=== PATIENT | female | born 1930 | race Caucasian/White ===

== ENCOUNTER 2016-11-11 14:42 | Inpatient (IN) | payer MEDICARE, MEDICAID ==
[2016-11-11] MEDS ORDERED: NS 0.9% 1000 ML* 1,000 ML IV SCH (17:15)
--- NOTE | 2016-11-11 18:11 | RAD ---
Indication: Altered mental status. Comparison: January 24, 2015 MRI. Technique: Noncontrast CT vertex of skull through foramen magnum. Report: Mild prominence of the cerebral sulci and cerebellar fissures reflecting atrophy. Unremarkable ventricles and basal cisterns. Calcification at the bilateral basal ganglia as well as the pineal gland and choroid plexus. Negative for lew matter white matter obscuration, intra or extra-axial hemorrhage, or mass effect. Decreased density in the periventricular and subcortical white matter while non-specific is most likely due to chronic microangiopathy. Atherosclerotic calcification at the carotid siphons. Unremarkable orbital contents. No suspicious calvarial or skull base lesion evident. Clear visualized paranasal sinuses and RIGHT mastoid air spaces. LEFT mastoid effusions appear increased over the 2015 MRI. Unremarkable scalp. IMPRESSION: No acute abnormality of the brain evident. Mild involutional change and stigmata of chronic small vessel ischemic disease similar to the 2015 MRI. Increase in magnitude of LEFT mastoid effusions.
[2016-11-11 18:18] LABS: Hematocrit 21 % (35-47); Hemoglobin 6.8 g/dl (12.0-16.0); Mean Corpuscular HGB Conc 32 g/dl (31-36); Mean Corpuscular Hemoglobin 27 pg (27-31); Mean Corpuscular Volume 85 fL (80-97); Mean Platelet Volume 9 um3 (7.4-10.4); Red Cell Distribution Width 28 % (10.5-15); White Blood Count 8.4 10^3/ul (3.5-10.8)
[2016-11-11 18:19] LABS: Comments Flag Yes
[2016-11-11 18:20] LABS: Add Diff/Slide Review? Slide Review Added
--- NOTE | 2016-11-11 18:26 | RAD ---
Indication: Altered mental status. Weakness. COPD. Cardiac disease. Comparison: January 20, 2015 CT abdomen and February 06, 2016 chest radiograph. Technique: Upright AP 1722 hours Report: Elevated lung volumes and both diffuse mild prominence of the interstitial markings and patchy rarefaction of the mid to upper lung zone interstitial markings. Bilateral pulmonary suture lines in the mid to upper lung zones. Negative for pleural effusions or pneumothorax. Negative for cardiomegaly. Large retrocardiac hiatal hernia noted. Prominent mildly ill-defined central pulmonary vasculature with mild perihilar opacities less prominent than on the prior exam. IMPRESSION: The constellation of findings is most suspicious for mild pulmonary vascular congestion and interstitial edema superimposed on chronic obstructive pulmonary disease and emphysema.
[2016-11-11 18:36] LABS: Troponin I 0.02 ng/mL (<0.04)
[2016-11-11 18:50] LABS: ALT 15 U/L (7-52); AST 28 U/L (13-39); Alkaline Phosphatase 145 U/L (34-104); Anion Gap 9 mmol/L (2-11); BUN/Creatinine Ratio 35.5 (8-20); Blood Urea Nitrogen 27 mg/dL (6-24); C Reactive Protein 5.91 mg/L (< 5.00); CO2 Carbon Dioxide 27 mmol/L (22-32); Calcium 8.7 mg/dL (8.6-10.3); Chloride 111 mmol/L (101-111); Creatine Kinase 34 U/L (10-223); EGFR African American 93.2 (>60); EGFR Non-African American 72.5 (>60); Globulin 4.9 g/dL (2-4); Glucose 103 mg/dL (70-100); Lipase < 10 U/L (11.0-82.0); Magnesium 1.8 mg/dL (1.9-2.7); Potassium 2.9 mmol/L (3.5-5.0); Sodium 147 mmol/L (133-145); Total Protein 7.9 g/dL (6.4-8.9)
[2016-11-11 18:59] LABS: TSH (Thyroid Stimulating Horm) 7.35 mcIU/mL (0.34-5.60)
--- NOTE | 2016-11-11 19:47 | ED ---
Ck Reveles Angela, scribed for Sherman Gant MD on 11/11/16 at 1705 . Neurological HPI - HPI Summary HPI Summary: This pt is a 86 y/o female presenting to [facility] c/o generalized weakness and increased confusion (AMS) since 5 days ago. Pt has dysphagia, has massive coughing and choking. Pt is unable to speak comprehensible words. Per daughter, pt had dark stools 2 days ago and since then she has not had a BM like this. Per daughter, pt has not been doing her usual activities such as reading and watching TV. Daughter has been spoon feeding the pt as she is unable to feed herself and notes the pt is dehydrated. Pt denies fever. Daughter notes that pt had internal bleeding and had a blood transfusion and electrolytes 6 weeks ago. Her follow up with normal lab results was on October 24. PMHx: diverticulitis, GI bleed, GERD, HTN. LIMITED HISTORY DUE TO LEVEL 5 CAVEAT - AMS. - History of Current Complaint Chief Complaint: EDNeurologicalDeficit Stated Complaint: WEAKNESS,BLOOD IN STOOL, POSSIBLE STROK Time Seen by Provider: 11/11/16 16:57 Hx Obtained From: Patient Hx From Patient Unobtainable Due To: Altered Mental Status Onset/Duration: Gradual Onset Character: Confusion Associated Signs and Symptoms: Positive: Confusion - Additional Pertinent History Primary Care Physician: ROSIE - Allergy/Home Medications Allergies/Adverse Reactions: Allergies Allergy/AdvReac Type Severity Reaction Status Date / Time Diphtheria Toxoid Allergy Unknown Verified 09/24/16 11:57 Reaction Details Pertussis Vaccine Allergy Unknown Verified 09/24/16 11:57 Reaction Details Codeine AdvReac Unknown doesnt Verified 09/24/16 11:57 work well with pt tetanus Allergy Unknown Uncoded 09/24/16 11:57 Reaction Details Home Medications: Home Medications Albuterol inh POWDER (NF) [Proair Respiclick] 1 puff INH Q6HR PRN 11/11/16 [ History Confirmed 11/11/16] Fluticasone NASAL * [Flonase *] 2 spray BOTH NARES DAILY 11/11/16 [History Confirmed 11/11/16] Iron 325 mg PO DAILY 11/11/16 [History Confirmed 11/11/16] LORazepam TAB(*) [Ativan 1 MG TAB (*)] 1 mg PO BID PRN MDD 2 mg 11/11/16 [ History Confirmed 11/11/16] Levothyroxine TAB* [Synthroid TAB*] 150 mcg PO DAILY 11/11/16 [History Confirmed 11/11/16] Metoprolol Tartrate TAB* [Lopressor TAB*] 12.5 mg PO DAILY 11/11/16 [History Confirmed 11/11/16] Potassium Chloride 30 ml PO DAILY 11/11/16 [History Confirmed 11/11/16] QUEtiapine TAB* [SEROquel TAB*] 50 mg PO BEDTIME PRN 11/11/16 [History Confirmed 11/11/16] PMH/Surg Hx/FS Hx/Imm Hx Endocrine/Hematology History: Reports: Hx Anticoagulant Therapy, Hx Blood Transfusions, Hx Thyroid Disease - hypothyroidism, Hx Anemia, Other Endocrine/ Hematological Disorders - thrombocytopenia Denies: Hx Diabetes, Hx Unexplained Bleeding Cardiovascular History: Reports: Hx Angina, Hx Cardiomegaly, Hx Congenital Heart Disease, Hx Congestive Heart Failure, Hx Coronary Artery Disease, Hx Hypercholesterolemia, Hx Hypertension, Hx Rheumatic Fever, Hx Valvular Heart Disease - AORTIC STENOSIS, Other Cardiovascular Problems/Disorders Denies: Hx Auto Implanted Cardiovert Defib, Hx Pacemaker/ICD Respiratory History: Reports: Hx Chronic Obstructive Pulmonary Disease (COPD) - on 2L home O2 at night, during the day only if needed, Hx Pneumonia, Hx Pulmonary Edema, Other Respiratory Problems/Disorders - COPD Denies: Hx Asthma GI History: Reports: Hx Diverticulosis, Hx Gastroesophageal Reflux Disease, Hx Gastrointestinal Bleed, Hx Hiatal Hernia - Rene lesions, Other GI Disorders - gastric erosions Denies: Hx Ulcer History: Denies: Hx Renal Disease Musculoskeletal History: Reports: Hx Arthritis, Hx Back Problems - 4 broken vertabrae, Hx Bursitis, Hx Orthopedic Injury - left hip fracture, Hx Osteoporosis, Other Musculoskeletal History - knee replacements Denies: Hx Scoliosis, Hx Tendonitis Sensory History: Reports: Hx Cataracts - surgery to both eyes, Hx Contacts or Glasses, Hx Vision Problem, Hx Deafness - NEZ PERCE, Hx Hearing Problem Denies: Hx Hearing Aid Opthamlomology History: Reports: Hx Cataracts - surgery to both eyes, Hx Contacts or Glasses, Hx Vision Problem Neurological History: Reports: Hx Dementia Denies: Hx Migraine, Hx Seizures Psychiatric History: Reports: Hx Anxiety, Hx Depression, Hx Panic Disorder, Hx Post Traumatic Stress Disorder - from loss of son Nov 2014 Denies: Hx Suicide Attempt, Hx Substance Abuse - Cancer History Cancer Type, Location and Year: NO CANCER FOUND IN TUMORS FROM LOBECTOMY - Surgical History Surgery Procedure, Year, and Place: LOBECTOMY, BILAT TOTAL KNEE REPLACEMENTS, Bilat cataracts Hx Anesthesia Reactions: No - Immunization History Date of Tetanus Vaccine: 07/21 Date of Influenza Vaccine: Fall 2013 Infectious Disease History: Denies: Hx Hepatitis, Hx Human Immunodeficiency Virus (HIV), Traveled Outside the [place] in Last 30 Days - Family History Known Family History: Negative: Other - malignant hyperthermia, anesthesia reaction - Social History Alcohol Use: None Alcohol Amount: Occasional glass of wine Substance Use Type: Reports: None Smoking Status (MU): Former Smoker Type: Cigarettes Amount Used/How Often: 4 or 5 a day Length of Time of Smoking/Using Tobacco: 15 Have You Smoked in the Last Year: No Review of Systems Negative: Fever, Chills Eyes: Negative ENT: Negative Musculoskeletal: Negative Neurological: Other - confusion Positive: Weakness - generalized All Other Systems Reviewed And Are Negative: Yes - Comments Additional Review of Systems Comments: LIMITED ROS DUE TO LEVEL 5 CAVEAT - AMS Physical Exam Triage Information Reviewed: Yes Vital Signs On Initial Exam: Initial Vitals Temp Pulse Resp BP Pulse Ox 97.3 F 69 20 136/41 94 11/11/16 14:45 11/11/16 14:45 11/11/16 14:45 11/11/16 14:45 11/11/16 14:45 Vital Signs Reviewed: Yes Completion Of Physical Exam Limited Due To: Altered Mental Status Appearance: Positive: Well-Appearing, No Pain Distress Skin: Positive: Warm, Skin Color Reflects Adequate Perfusion, Dry Head/Face: Positive: Normal Head/Face Inspection Eyes: Positive: EOMI, KELLI ENT: Positive: Other - Oral mucosa is dry. Neck: Positive: Supple, Nontender Respiratory/Lung Sounds: Positive: Clear to Auscultation, Breath Sounds Present Cardiovascular: Positive: RRR, Murmur Abdomen Description: Positive: Nontender, Soft Bowel Sounds: Positive: Present Musculoskeletal: Positive: Normal, Strength/ROM Intact, Other - No edema Neurological: Positive: Sensory/Motor Intact - moves all 4 extremeties when prompted., Other - Minimally verbal Psychiatric: Positive: Affect/Mood Appropriate - Todd Coma Scale Best Eye Response: 4 - Spontaneous Best Motor Response: 6 - Obeys Commands Best Verbal Response: 4 - Confused Diagnostics - Vital Signs Vital Signs Temp Pulse Resp BP Pulse Ox 11/11/16 14:45 97.3 F 69 20 136/41 94 - Laboratory Lab Results: Lab Results 11/11/16 11/11/16 11/11/16 Range/Units 18:01 18:01 18:01 WBC 8.4 (3.5-10.8) 10^3/ul RBC 2.50 L (4.0-5.4) 10^6/ul Hgb 6.8 L (12.0-16.0) g/dl Hct 21 L (35-47) % MCV 85 (80-97) fL MCH 27 (27-31) pg MCHC 32 (31-36) g/dl RDW 28 H (10.5-15) % Plt Count 119 L (150-450) 10^3/ul MPV 9 (7.4-10.4) um3 Neut % (Auto) 72.9 (38-83) % Lymph % (Auto) 13.2 L (25-47) % [place] % (Auto) 12.7 H (1-9) % Eos % (Auto) 1.0 (0-6) % Baso % (Auto) 0.2 (0-2) % Absolute Neuts (auto) 6.1 (1.5-7.7) 10^3/ul Absolute Lymphs (auto) 1.1 (1.0-4.8) 10^3/ul Absolute Monos (auto) 1.1 H (0-0.8) 10^3/ul Absolute Eos (auto) 0.1 (0-0.6) 10^3/ul Absolute Basos (auto) 0 (0-0.2) 10^3/ul Absolute Nucleated RBC 0 10^3/ul Nucleated RBC % 0 Hem Pathologist Commnt Pending INR (Anticoag Therapy) 1.14 H (0.89-1.11) APTT 31.4 (26.0-36.3) seconds Sodium 147 H (133-145) mmol/L Potassium 2.9 L (3.5-5.0) mmol/L Chloride 111 (101-111) mmol/L Carbon Dioxide 27 (22-32) mmol/L Anion Gap 9 (2-11) mmol/L BUN 27 H (6-24) mg/dL Creatinine 0.76 (0.51-0.95) mg/dL Est GFR ( Amer) 93.2 (>60) Est GFR (Non-Af Amer) 72.5 (>60) BUN/Creatinine Ratio 35.5 H (8-20) Glucose 103 H (70-100) mg/dL Lactic Acid (0.5-2.0) mmol/L Calcium 8.7 (8.6-10.3) mg/dL Magnesium 1.8 L (1.9-2.7) mg/dL Total Bilirubin 0.70 (0.2-1.0) mg/dL AST 28 (13-39) U/L ALT 15 (7-52) U/L Alkaline Phosphatase 145 H (34-104) U/L Total Creatine Kinase 34 (10-223) U/L CK-MB (CK-2) 1.7 (0.6-6.3) ng/mL Troponin I 0.02 (<0.04) ng/mL C-Reactive Protein 5.91 H (< 5.00) mg/L Total Protein 7.9 (6.4-8.9) g/dL Albumin 3.0 L (3.2-5.2) g/dL Globulin 4.9 H (2-4) g/dL Albumin/Globulin Ratio 0.6 L (1-3) Lipase < 10 L (11.0-82.0) U/L TSH 7.35 H (0.34-5.60) mcIU/mL Free T4 Pending Free T3 Pending 11/11/16 Range/Units 18:01 WBC (3.5-10.8) 10^3/ul RBC (4.0-5.4) 10^6/ul Hgb (12.0-16.0) g/dl Hct (35-47) % MCV (80-97) fL MCH (27-31) pg MCHC (31-36) g/dl RDW (10.5-15) % Plt Count (150-450) 10^3/ul MPV (7.4-10.4) um3 Neut % (Auto) (38-83) % Lymph % (Auto) (25-47) % [place] % (Auto) (1-9) % Eos % (Auto) (0-6) % Baso % (Auto) (0-2) % Absolute Neuts (auto) (1.5-7.7) 10^3/ul Absolute Lymphs (auto) (1.0-4.8) 10^3/ul Absolute Monos (auto) (0-0.8) 10^3/ul Absolute Eos (auto) (0-0.6) 10^3/ul Absolute Basos (auto) (0-0.2) 10^3/ul Absolute Nucleated RBC 10^3/ul Nucleated RBC % Hem Pathologist Commnt INR (Anticoag Therapy) (0.89-1.11) APTT (26.0-36.3) seconds Sodium (133-145) mmol/L Potassium (3.5-5.0) mmol/L Chloride (101-111) mmol/L Carbon Dioxide (22-32) mmol/L Anion Gap (2-11) mmol/L BUN (6-24) mg/dL Creatinine (0.51-0.95) mg/dL Est GFR ( Amer) (>60) Est GFR (Non-Af Amer) (>60) BUN/Creatinine Ratio (8-20) Glucose (70-100) mg/dL Lactic Acid 1.2 (0.5-2.0) mmol/L Calcium (8.6-10.3) mg/dL Magnesium (1.9-2.7) mg/dL Total Bilirubin (0.2-1.0) mg/dL AST (13-39) U/L ALT (7-52) U/L Alkaline Phosphatase (34-104) U/L Total Creatine Kinase (10-223) U/L CK-MB (CK-2) (0.6-6.3) ng/mL Troponin I (<0.04) ng/mL C-Reactive Protein (< 5.00) mg/L Total Protein (6.4-8.9) g/dL Albumin (3.2-5.2) g/dL Globulin (2-4) g/dL Albumin/Globulin Ratio (1-3) Lipase (11.0-82.0) U/L TSH (0.34-5.60) mcIU/mL Free T4 Free T3 Result Diagrams: 11/11/16 18:11/11/16 18:01 Lab Statement: Any lab studies that have been ordered have been reviewed, and results considered in the medical decision making process. - Radiology Chest XR Xray Interpretation: Positive (See Comments) - IMPRESSION: The constellation of findings is most suspicious for mild pulmonary vascular congestion and interstitial edema superimposed on chronic obstructive pulmonary disease and emphysema. ED physician has reviewed this radiology report and agrees. Radiology Interpretation Completed By: Radiologist - CT Brain CT CT Interpretation: Positive (See Comments) - IMPRESSION: No acute abnormality of the brain evident. Mild involutional change and stigmata of chronic small vessel ischemic disease similar to the 2015 MRI. Increase in magnitude of LEFT mastoid effusions. ED physician has reviewed this radiology report and agrees. CT Interpretation Completed By: Radiologist - EKG 14:55 Cardiac Rate: NL - 69 bpm Ectopy: PVCs EKG Interpretation: Sinus arrhythmia with PVCs and LVH. Course/Dx - Course Assessment/Plan: This pt is a 86 y/o female presenting to [facility] c/o generalized weakness and increased confusion (AMS) since 5 days ago. Pt has dysphagia, has massive coughing and choking. Pt is unable to speak comprehensible words. Per daughter, pt had dark stools 2 days ago and since then she has not had a BM like this. Per daughter, pt has not been doing her usual activities such as reading and watching TV. Daughter has been spoon feeding the pt as she is unable to feed herself and notes the pt is dehydrated. Labs, UA, chest XR, brain CT, and EKG were obtained. In the ED course, the pt was given IV fluids. Brain CT shows no acute abnormality of the brain evident. Mild involutional change and stigmata of chronic small vessel ischemic disease similar to the 2015 MRI. Increase in magnitude of LEFT mastoid effusions. Chest XR reveals the constellation of findings is most suspicious for mild pulmonary vascular congestion and interstitial edema superimposed on chronic obstructive pulmonary disease and emphysema. Labs show RBC of 2.5, hgb of 6.8, hct 21, platelet count of 119. Pt will be admitted to the hospitalist in stable condition. Elevated BP noted and advised to follow up with PCP. Medications reviewed. ADMIT HOSPITALIST. NO CRITICAL CARE TIME. - Diagnoses Provider Diagnoses: Weakness, Altered mental state, GI bleed, Anemia Discharge - Discharge Plan Condition: Stable Disposition: ADMITTED TO [facility] Referrals: Padmaja Parson MD [Primary Care Provider] - The documentation as recorded by the Ck arnold Angela accurately reflects the service I personally performed and the decisions made by me, Sherman Gant MD.
[2016-11-11 19:49] LABS: Free T4 0.98 ng/dL (0.61-1.12)
[2016-11-11] MEDS ORDERED: Octreotide Acetate* 50 MCG in NS 0.9% 50 ML* 50 ML IVPB ONE (19:50)
[2016-11-11] MEDS ORDERED: Potassium Chloride LIQUID* 20 MEQ PACKET PO ONE (19:52)
[2016-11-11] MEDS ORDERED: Ondansetron INJ* 2 MG/ML VIAL IV PRN (19:54)
[2016-11-11] MEDS ORDERED: Pantoprazole IV* 80 MG in NS 0.9% 250 ML* 250 ML IVPB SCH (20:00)
[2016-11-11] MEDS ORDERED: Acetaminophen TAB* 325 MG PO PRN (20:11)
[2016-11-11] MEDS ORDERED: Albuterol HFA INHALER* 8 gm MDI INH PRN (20:11)
[2016-11-11] MEDS ORDERED: QUEtiapine TAB* 25 MG PO PRN (20:11)
[2016-11-11] MEDS: Omeprazole CAP* 20 MG PO SCH (23:14)
[2016-11-11] MEDS ORDERED: Furosemide IV* 10 MG/ML 2 ML VIAL (20 MG) IV SLOW PU ONE (23:59)
--- NOTE | 2016-11-12 00:57 | HP ---
HISTORY AND PHYSICAL: DATE OF ADMISSION: 11/11/16 PRIMARY CARE PROVIDER: Dr. Parson. HEALTHCARE PROXY: Her daughter, Adina Mackay. CODE STATUS: DNR/DNI. Discussed with patient and her daughter, MOLST updated. SOURCE OF INFORMATION: History obtained from intervening with daughter, review of past medical records, review of PCPs and recent lab testing. RELIABILITY: Good. HISTORY OF PRESENT ILLNESS: This is an 86-year-old female with complex past medical history including hospital stay in 2014 with persistent dysphagia at which time she was discharged on hospice, however, had increased appetite. Ultimately, continued with dysphagia likely aspirations, however, was discharged from hospice, again hospitalized in February 2016 with recurrent pneumonias, found in the setting of her dysphagia to have esophageal varices on endoscopy, who had been in her usual state of health until approximately 6 weeks prior, was found to be anemic by Dr. Parson after which received transfusion of 2 units packed red blood cells at the infusion center. After that transfusion on 10/23/16, she had hemoglobin checked by Dr. Parson, which was 10.9. She has had three followups with her PCP since that time. There has been prolonged discussion whether she could tolerate an EGD. However, since that time after the blood transfusion, she felt "more lively", however, had worsening dementia per her daughter. Of note, the patient's son one week prior after which she had increasing weakness and fatigue, was sleeping more and described as " weight" when her daughter was attempting to move her. She described increased sadness, aggressiveness, and anger for which she had difficulty explaining why this was occurring. She has had occasional dark stool "off and on" over the last 6 weeks, however, no bright red blood per rectum. Three days prior to admission, she had one large black tarry bowel movement after which she felt better. However, since that time she has had increased slurred speech, which has progressed from her baseline. Patient is noted to have slurred speech and some expressive aphasia at times of systemic stress including dehydration, an episode of hypothermia in the past and when she has been anemic. She has had particular difficulty talking when she is dehydrated. However, because of her increased fatigue, increased dysphagia, decreased attention span and episode of large melanotic stool, the daughter brought the patient to be evaluated today in the emergency room. In the emergency room, she was found with hemoglobin of 6.8 for which the hospitalist service was consulted for admission. PAST MEDICAL HISTORY: Includes history of GI bleed, history of hypertension, hyperlipidemia, atrial fibrillation, diastolic heart failure, moderate-to- severe aortic stenosis, COPD, hypothyroidism, recurrent aspiration pneumonia, GERD, large hiatal hernia, esophageal varices, depression, dementia, malnutrition, hypokalemia, chronic respiratory failure. HOME MEDICATIONS: Include: 1. Iron 325 daily. 2. Seroquel 50 mg at bedtime as needed. 3. Metoprolol tartrate 12.5 mg daily. 4. Torsemide 10 mg daily. 5. Albuterol one puff every 6 hours as needed for shortness of breath. 6. Acetaminophen 650 mg every 6 hours as needed for pain. 7. Fluticasone nasal spray two sprays both nares daily. 8. Spiriva one cap inhale in the morning. 9. Synthroid 150 mcg daily. 10. Lorazepam 1 mg twice daily as needed. 11. Amlodipine 5 mg daily. 12. Omeprazole 20 mg twice daily. 13. Zoloft 200 mg daily. 14. Potassium chloride 30 mL daily, which was noted to be recently increased. ALLERGIES: To DIPHTHERIA TOXOID, PERTUSSIS VACCINE, and CODEINE. FAMILY HISTORY: No history of CVAs or CAD. SOCIAL HISTORY: Lives with her daughter. No tobacco, alcohol, or illicits. REVIEW OF SYSTEMS: Obtained largely from the daughter as outlined in the HPI, otherwise all other systems negative or unable to obtain. PHYSICAL EXAMINATION GENERAL: Elderly woman, older than stated age. Thin, cachectic, temporal wasting. VITAL SIGNS: In the emergency room, 143/42, respiratory rate is 18, heart rate 66, 98% on 3 L nasal cannula. T-max in the emergency room 98.7. HEENT: Her oropharynx is clear with dry mucous membranes. Sclerae are anicteric. No conjunctival pallor. NECK: Nonelevated JVD. LUNGS: Clear to auscultation. HEART: She has 2/6 systolic ejection murmur loudest in the right upper sternal border. Mid peaking. ABDOMEN: Soft, nontender. EXTREMITIES: Warm and well perfused without clubbing, cyanosis, or edema. NEUROLOGIC: She is able say her name, however, not oriented otherwise. She has significant expressive aphasia with difficulty phonating. DIAGNOSTIC STUDIES/LAB DATA: Pertinent labs reviewed. Hemoglobin 6.8 with an MCV of 85, platelets 119. INR 1.1. Sodium 147, potassium 2.9, BUN 27, creatinine 0.76, lactic acid 1.2. TSH 7.35, free T4 0.98, and free T3 of 2.0. Urinalysis is still pending. Data reviewed. Chest x-ray, constellation of findings was suspicious for mild pulmonary vascular congestion, interstitial edema, superimposed on chronic obstructive pulmonary disease and emphysema. CT head, noncontrast, no acute abnormality of the brain evident. Mild involutional change and stigmata of chronic small vessel ischemic disease similar to MRI in 2015, increased in magnitude of left mastoid effusions. ASSESSMENT AND PLAN: This is an 86-year-old female with past medical history of esophageal varices as well as GI bleed, chronic dysphagia, congestive heart failure and chronic obstructive pulmonary disease with chronic respiratory failure, who presented to the hospital with increased fatigue and weakness as well as large episode of melena, melanotic stool found with recurrent anemia. 1. Anemia: Transfuse 1 unit packed red blood cells now followed by 20 mg of Lasix, especially in the setting of pulmonary vascular congestion already seen on portable chest x-ray. Protonix bolus, then drip and started octreotide with bolus and drip given history of esophageal varices, although difficult to ascertain the rate of bleeding at this point. I had discussion with daughter. She is unclear whether they would want to pursue endoscopy at this point given concern that she would not be able to tolerate the procedure. She would like to be seen by corporate safety coordinator to further discuss the risks and benefits of such procedure. She is in agreement with plan to start aforementioned treatments and monitor blood level, hemoglobin one hour after transfusion of packed red blood cells. 2. Dysphagia, has been a persistent problem since discharge from the hospital in 2015. Patient noted to cough sometimes quite severely at home with occasional episodes of aspiration. The daughter is treating patient with a goal of comfort in the ER allowing her to eat, which she can tolerate which is mostly consisted of things like small bites of toast, eggs, and thickened liquids. We will continue at this point and now pursue additional swallow eval. 3. Hypokalemia: Replete with liquid now. Recheck in the morning. 4. Hypothyroidism: Currently borderline and checked in the setting of acute stress. Not changed her Synthroid at this point but recheck in 6 weeks. 5. Hypernatremia. Suspect in the setting of dehydration. Transfuse blood and recheck in the morning. 6. CHF, diastolic: Currently compensated. Continue with home torsemide. Careful attention to fluid status in the setting of blood transfusions. 7. COPD: Continue home inhalers. 8. Depression: Continue Zoloft. 9. FEN: Continue thickened liquids, soft diet, unrestricted. 10. Code status: DNR/DNI. 11. DVT prophylaxis: TEDs, holding pharmacologic therapy in the setting of suspected GI bleed. [id number]/CPS #: [id number] MTDD
[2016-11-12] MEDS: Pantoprazole IV* 80 MG in NS 0.9% 250 ML* 250 ML IV SCH ×3 (01:04→22:14)
[2016-11-12 01:28] LABS: Hematocrit 24 % (35-47)
[2016-11-12 01:36] LABS: Comments Flag Yes
[2016-11-12] MEDS: Levothyroxine TAB* 150 MCG TAB PO SCH (06:21)
[2016-11-12 06:36] LABS: Hematocrit 26 % (35-47); Hemoglobin 8.4 g/dl (12.0-16.0); Mean Corpuscular HGB Conc 33 g/dl (31-36); Mean Corpuscular Hemoglobin 28 pg (27-31); Mean Corpuscular Volume 84 fL (80-97); Mean Platelet Volume 10 um3 (7.4-10.4); Red Blood Count 3.05 10^6/ul (4.0-5.4); White Blood Count 7.4 10^3/ul (3.5-10.8)
[2016-11-12 06:41] LABS: Comments Flag Yes
[2016-11-12 06:42] LABS: Red Cell Distribution Width 25 % (10.5-15)
[2016-11-12 06:55] LABS: BUN/Creatinine Ratio 37.5 (8-20); Calcium 8.5 mg/dL (8.6-10.3); EGFR African American 99.2 (>60); EGFR Non-African American 77.2 (>60)
[2016-11-12] MEDS ORDERED: NS 0.45% KCl 20 Meq 1000 ML* 1,000 ML IV SCH (08:00)
[2016-11-12] MEDS: Sertraline* 100 MG TAB PO SCH (08:31)
[2016-11-12] MEDS: Metoprolol Tartrate TAB* 25 MG PO SCH (08:32)
[2016-11-12] MEDS: Omeprazole CAP* 20 MG PO SCH ×2 (08:32→22:24)
[2016-11-12] MEDS: Fluticasone NASAL SPRAY 50MCG* 16 gm SPRAY BTL BOTH NARES SCH (08:33)
[2016-11-12] MEDS: amLODIPine TAB* 5 MG PO SCH (08:33)
[2016-11-12] MEDS ORDERED: Torsemide TAB* 20 MG PO SCH (09:00)
[2016-11-12] MEDS ORDERED: Spiriva Inhaler DEVICE* 1 EACH DEVICE INH ONE (09:00)
[2016-11-12] MEDS: Tiotropium CAP.INH* CAP.INH/18 MCG INH SCH (11:04)
--- NOTE | 2016-11-12 14:14 | PN ---
Subjective Date of Service: 11/12/16 Interval History: HOSPITALIST PROGRESS NOTE Patient seen and examined at bedside. She offers no complaints at this time. Family History: Unchanged from Admission Social History: Unchanged from Admission Past Medical History: Unchanged from Admission Objective Active Medications: Acetaminophen (Tylenol Tab*) 650 mg PO Q6H PRN PRN Reason: FEVER/PAIN Albuterol (Ventolin Hfa Inhaler*) 1 puff INH Q6HR PRN PRN Reason: SHORTNESS OF BREATH Amlodipine Besylate (Norvasc Tab*) 5 mg PO QAM [facility] Last Admin: 11/12/16 08:33 Dose: 5 mg Fluticasone Propionate (Flonase Nasal [place] 50mcg*) 2 spray BOTH NARES DAILY [facility] Last Admin: 11/12/16 08:33 Dose: Not Given Pantoprazole Sodium 80 mg/ (Sodium Chloride) 250 mls @ 25 mls/hr IV Q10H [facility] Last Admin: 11/12/16 08:27 Dose: 25 mls/hr Octreotide Acetate 500 mcg/ (Sodium Chloride) 101 mls @ 5.05 mls/hr IVPB Q20H [facility] PRN Reason: 25 MCG/HR Last Admin: 11/12/16 01:00 Dose: 5.05 mls/hr Potassium Chloride/Sodium Chloride (Ns 0.45% Kcl 20 Meq 1000 Ml*) 1,000 mls @ 50 mls/hr IV PER RATE [facility] Stop: 11/13/16 03:59 Last Admin: 11/12/16 08:27 Dose: 50 mls/hr Levothyroxine Sodium (Synthroid Tab*) 150 mcg PO 0600 [facility] Last Admin: 11/12/16 06:21 Dose: 150 mcg Metoprolol Tartrate (Lopressor Tab*) 12.5 mg PO DAILY [facility] Last Admin: 11/12/16 08:32 Dose: 12.5 mg Omeprazole (Prilosec Cap*) 20 mg PO BID [facility] Last Admin: 11/12/16 08:32 Dose: 20 mg Ondansetron HCl (Zofran Inj*) 4 mg IV Q4H PRN PRN Reason: NAUSEA/VOMITING Quetiapine Fumarate (Seroquel Tab*) 50 mg PO BEDTIME PRN PRN Reason: ANXIETY Sertraline HCl (Zoloft*) 200 mg PO DAILY [facility] Last Admin: 11/12/16 08:31 Dose: 200 mg Tiotropium [place] (Spiriva Cap.Inh*) 1 cap INH QAM [facility] Last Admin: 11/12/16 11:04 Dose: 1 cap Vital Signs 11/12/16 11/12/16 11/12/16 07:54 08:00 11:41 Temperature 97.3 F 97.7 F Pulse Rate 65 55 Respiratory 16 18 15 Rate Blood Pressure 112/50 131/40 (mmHg) O2 Sat by Pulse 100 100 Oximetry Oxygen Devices in Use Now: Nasal Cannula Appearance: Frail elderly lady lying in bed in NAD. Eyes: No Scleral Icterus Ears/Nose/Mouth/Throat: Mucous Membranes Moist Neck: Trachea Midline Respiratory: Symmetrical Chest Expansion and Respiratory Effort, Clear to Auscultation Cardiovascular: RRR - Normal S1 and S2, +SM Abdominal: NL Sounds; No Tenderness; No Distention Neurological: - - AAOx1 (self only) Lines/Tubes/Other Access: Clean, Dry and Intact Peripheral IV Nutrition: Taking PO's Result Diagrams: 11/12/16 06:13 11/12/16 06:13 Assess/Plan/Problems-Billing Assessment: Mrs. Hoang is an 86yo F with PMH of prior GI bleed, HTN, HLD, Afib, diastolic CHF , moderate to severe , COPD, hypothyroidism, recurrent aspiration pneumonia, GERD, large hiatal hernia, esophageal varices, depression, dementia, malnutrition, who presented to ED with c/o tarry black stools and weakness, found to have a GI bleed. - Patient Problems (1) GI bleed Comment: - As per daughter, patient had black tarry stools. She also has BUN elevation, suggestive of upper GI bleed. With her h/o esophageal varices (see EGD report), this could be the source. - Will continue medical management with Protonix and Octreotide drip. - GI consult requested - unclear if patient would be a candidate for EGD due to her comorbidities and frailty. If the source is variceal, bands can make her dysphagia worse. - She was on hospice for 1 year and was discharged 1 year ago. As per daughter initially she was thriving, gained some weight, but appears to be declining again. Has lost 10lbs over the last 5 weeks (was 87lbs on her last PCP visit). (2) Acute blood loss anemia Comment: - S/p 1 PRBC - Hb up to 8.4. - Will continue to monitor. - If we decide not to pursue EGD, one approach would be weekly-biweekly CBCs with transfusions as outpatient. (3) Dysphagia Comment: - Chronic problem, but appears to have progressed. - Will request Swallow evaluation. (4) Hypokalemia Comment: - Continue to replete. (5) Hypernatremia Comment: - Continue 0.45% NS and monitor electrolytes. (6) DVT prophylaxis Comment: - Pharmacological prophylaxis contraindicated in the setting of GI bleed. - SCDs. (7) DNR (do not resuscitate) Status and Disposition: Inpatient for management of GI bleed requiring >48h for stabilization. Daughter updated at bedside.
[2016-11-12] MEDS: KCL 10 MEQ/50 ML IVPREMIX* 10 MEQ/50 ML BAG IV SCH ×3 (15:49→20:09)
--- NOTE | 2016-11-12 20:04 | CONS ---
GASTROENTEROLOGY CONSULTATION DATE OF CONSULT: 11/12/16 CONSULTING PHYSICIANS: Padmaja Parson MD; Andre Aragon MD. REASON FOR CONSULTATION: Anemia with very jet black tarry stool 2 days prior to admission. HISTORY: This 86-year-old debilitated woman who is cared for by her daughter at home with total care needs and was fed a pureed diet, developed tarry black stool on 11/09/16. The daughter had been warned about that and brought her mother to the hospital a couple of days later. There had been no hematemesis, syncope or maroon or overt rectal bleeding. She never had a stool quite that appearance before and never any overt bleeding. This summer, she was found to be anemic by Dr. Parson and was transfused 2 units and placed on iron a couple of months ago. When the iron was started, the stools turned dark but not quite jet black. There was also a lot of diarrhea. In January 2015, she was hospitalized and having trouble with dysphagia. Upper endoscopy showed esophagus, very large hiatal hernia, large esophageal varices, but no overt bleeding. She was sent home on hospice but now in her daughter's home began eating better and perked up and has survived and been discharged to the hospice program. PAST MEDICAL HISTORY: 1. Hypertension. 2. Atrial fibrillation. 3. Isznxjpc-gg-ynfbyd aortic stenosis. 4. Hypothyroidism. 5. Aspiration pneumonia events. 6. Large hiatal hernia. 7. Portal hypertension with splenomegaly, varices and platelets of about 100, 000. MEDICATIONS: Reviewed from the hospitalist note and the summary. It includes: 1. Iron 325. 2. Omeprazole 20 mg b.i.d. 3. The only liquid medication is her potassium. SOCIAL HISTORY: She lives with her daughter, Adina Mackay and is . REVIEW OF SYSTEMS: No history of abdominal surgery, hematemesis, cardiac surgery, hepatitis. EXAM: She is a frail debilitated woman, regarding one intently, but speaking very little. Her daughter gives the history. HEENT exam shows frailty and temporal wasting. She has no adenopathy. Her lungs show bilateral equal breath sounds at the apices, but there is poor effort and cannot be fully assessed. 2/6 systolic murmur. The abdomen is symmetric, firm and with voluntary guarding. Rectal shows gummy, thick black stools, submitted for Hemoccult. Per the daughter, she has not had a bowel movement today or even the last half of yesterday. LABS: Today, hemoglobin 8.4 after 1 unit of transfusion yesterday, MCV 84, platelets 104. INR 1.14, BUN 27, somewhat above her baseline which is in the teens. Other labs include iron panel, October 2013 was 23, the TIBC 462, saturation 5%, ferritin 81.3 at that time. IMPRESSION: This woman's anemia probably has 2 components, chronic one from her large hiatal hernia and possibly contribution from portal hypertensive gastropathy and this was compounded by anemia of chronic disease. Some low dose , iron supplementation is likely a good idea in the 16 to 20 mg per day range. The standard large iron tablet is probably more than can be absorbed, and is likely to be irritating especially of the esophagus as it is one of known classic influences. Switching to a liquid iron or a chewable or grindable pediatric multivitamin will likely be a better idea. As regards to the episode of melena that occurred 3 days ago, it has stopped and whether or not the octreotide played a supporting role in that venture is hard to say, but the burden and risk of an EGD and attempted banding is likely to be extraordinary and would best be avoided, avoiding esophageal irritants is likely the best course of action. [id number]/[facility] #: [id number] [facility]OS[facility]ITALAlex
[2016-11-12] MEDS ORDERED: KCL 10 MEQ/50 ML IVPREMIX* 10 MEQ/50 ML BAG ONE (20:06)
[2016-11-13 06:10] LABS: Anion Gap 7 mmol/L (2-11); BUN/Creatinine Ratio 32.3 (8-20); Blood Urea Nitrogen 20 mg/dL (6-24); CO2 Carbon Dioxide 18 mmol/L (22-32); Calcium 8.2 mg/dL (8.6-10.3); Chloride 118 mmol/L (101-111); EGFR African American 117.9 (>60); EGFR Non-African American 91.7 (>60); Glucose 117 mg/dL (70-100); Sodium 143 mmol/L (133-145)
[2016-11-13] MEDS: Levothyroxine TAB* 150 MCG TAB PO SCH ×2 (06:16→08:00)
[2016-11-13] MEDS: Metoprolol Tartrate TAB* 25 MG PO SCH (07:52)
[2016-11-13] MEDS: Sertraline* 100 MG TAB PO SCH (07:54)
[2016-11-13] MEDS: amLODIPine TAB* 5 MG PO SCH (07:55)
[2016-11-13] MEDS: Omeprazole CAP* 20 MG PO SCH ×2 (07:55→21:13)
[2016-11-13] MEDS: Fluticasone NASAL SPRAY 50MCG* 16 gm SPRAY BTL BOTH NARES SCH (08:06)
[2016-11-13] MEDS: Tiotropium CAP.INH* CAP.INH/18 MCG INH SCH (09:14)
[2016-11-13 09:47] LABS: Hematocrit 28 % (35-47); Hemoglobin 8.9 g/dl (12.0-16.0); Mean Corpuscular HGB Conc 32 g/dl (31-36); Mean Corpuscular Hemoglobin 27 pg (27-31); Mean Corpuscular Volume 87 fL (80-97); Mean Platelet Volume 9 um3 (7.4-10.4); Red Blood Count 3.25 10^6/ul (4.0-5.4); Red Cell Distribution Width 25 % (10.5-15); White Blood Count 5.9 10^3/ul (3.5-10.8)
[2016-11-13 09:49] LABS: Add Diff/Slide Review? Slide Review Added; Comments Flag Yes
[2016-11-13] MEDS: Pantoprazole IV* 80 MG in NS 0.9% 250 ML* 250 ML IV SCH ×3 (10:19→23:56)
[2016-11-13 11:01] LABS: Hypochromasia 1+
[2016-11-13 11:02] LABS: Microcytosis 1+; Tear Drop Cells 1+
--- NOTE | 2016-11-13 13:45 | PN ---
Subjective Date of Service: 11/13/16 Interval History: HOSPITALIST PROGRESS NOTE Patient seen and examined at bedside. She offers no complaints today. No BMs so far. Family History: Unchanged from Admission Social History: Unchanged from Admission Past Medical History: Unchanged from Admission Objective Active Medications: Acetaminophen (Tylenol Tab*) 650 mg PO Q6H PRN PRN Reason: FEVER/PAIN Albuterol (Ventolin Hfa Inhaler*) 1 puff INH Q6HR PRN PRN Reason: SHORTNESS OF BREATH Amlodipine Besylate (Norvasc Tab*) 5 mg PO QAM [facility] Last Admin: 11/13/16 07:55 Dose: 5 mg Fluticasone Propionate (Flonase Nasal [place] 50mcg*) 2 spray BOTH NARES DAILY [facility] Last Admin: 11/13/16 08:06 Dose: Not Given Pantoprazole Sodium 80 mg/ (Sodium Chloride) 250 mls @ 25 mls/hr IV Q10H [facility] Last Admin: 11/13/16 10:19 Dose: 25 mls/hr Octreotide Acetate 500 mcg/ (Sodium Chloride) 101 mls @ 5.05 mls/hr IVPB Q20H [facility] PRN Reason: 25 MCG/HR Last Admin: 11/12/16 23:55 Dose: 5.05 mls/hr Levothyroxine Sodium (Synthroid Tab*) 150 mcg PO 0600 [facility] Last Admin: 11/13/16 08:00 Dose: Not Given Metoprolol Tartrate (Lopressor Tab*) 12.5 mg PO DAILY [facility] Last Admin: 11/13/16 07:52 Dose: 12.5 mg Omeprazole (Prilosec Cap*) 20 mg PO BID [facility] Last Admin: 11/13/16 07:55 Dose: 20 mg Ondansetron HCl (Zofran Inj*) 4 mg IV Q4H PRN PRN Reason: NAUSEA/VOMITING Quetiapine Fumarate (Seroquel Tab*) 50 mg PO BEDTIME PRN PRN Reason: ANXIETY Sertraline HCl (Zoloft*) 200 mg PO DAILY [facility] Last Admin: 11/13/16 07:54 Dose: 200 mg Tiotropium [place] (Spiriva Cap.Inh*) 1 cap INH QAM [facility] Last Admin: 11/13/16 09:14 Dose: Not Given Vital Signs 11/13/16 11/13/16 11/13/16 07:52 08:00 11:17 Temperature 97.7 F Pulse Rate 60 51 Respiratory 18 16 Rate Blood Pressure 140/48 (mmHg) O2 Sat by Pulse 100 Oximetry Oxygen Devices in Use Now: None Appearance: Elderly frail lady lying in a recliner in NAD. Eyes: No Scleral Icterus Ears/Nose/Mouth/Throat: Mucous Membranes Moist Neck: Trachea Midline Respiratory: Symmetrical Chest Expansion and Respiratory Effort, Clear to Auscultation Cardiovascular: RRR - Normal S1 and S2 Abdominal: NL Sounds; No Tenderness; No Distention Neurological: - - AAOx1 (self), ZENG Lines/Tubes/Other Access: Clean, Dry and Intact Peripheral IV Nutrition: Taking PO's Result Diagrams: 11/13/16 09:15 11/13/16 05:19 Assess/Plan/Problems-Billing Assessment: Mrs. Hoang is an 86yo F with PMH of prior GI bleed, HTN, HLD, Afib, diastolic CHF , moderate to severe , COPD, hypothyroidism, recurrent aspiration pneumonia, GERD, large hiatal hernia, esophageal varices, depression, dementia, malnutrition, who presented to ED with c/o tarry black stools and weakness, found to have a GI bleed. - Patient Problems (1) GI bleed Comment: - As per daughter, patient had black tarry stools. She also has BUN elevation, suggestive of upper GI bleed. With her h/o esophageal varices (see EGD report), this could be the source. - Will continue medical management with Protonix and Octreotide drip x 48h. - GI consult appreciated - patient not a candidate for EGD due to her comorbidities and frailty. If the source is variceal, bands can make her dysphagia worse. - She was on hospice for 1 year and was discharged 1 year ago. As per daughter initially she was thriving, gained some weight, but appears to be declining again. Has lost 10lbs over the last 5 weeks (was 87lbs on her last PCP visit). (2) Acute blood loss anemia Comment: - S/p 1 PRBC - Hb up to 8.9. - May benefit of weekly-biweekly CBCs by VNS with transfusions as outpatient. (3) Dysphagia Comment: - Chronic problem, but appears to have progressed. - Swallow evaluation appreciated. (4) DVT prophylaxis Comment: - Pharmacological prophylaxis contraindicated in the setting of GI bleed. - SCDs. (5) DNR (do not resuscitate) Status and Disposition: Inpatient for management of GI bleed requiring >48h for stabilization. Daughter updated at bedside. Anticipate d/c in AM.
[2016-11-14] MEDS: Tiotropium CAP.INH* CAP.INH/18 MCG INH SCH (08:23)
[2016-11-14 09:07] VITALS: BP 142/47
[2016-11-14] MEDS: Levothyroxine TAB* 150 MCG TAB PO SCH (09:16)
[2016-11-14] MEDS: Pantoprazole IV* 80 MG in NS 0.9% 250 ML* 250 ML IV SCH (09:16)
[2016-11-14] MEDS: Fluticasone NASAL SPRAY 50MCG* 16 gm SPRAY BTL BOTH NARES SCH (09:17)
[2016-11-14] MEDS: Metoprolol Tartrate TAB* 25 MG PO SCH (09:17)
[2016-11-14] MEDS: Omeprazole CAP* 20 MG PO SCH (09:17)
[2016-11-14] MEDS: amLODIPine TAB* 5 MG PO SCH (09:17)
[2016-11-14] MEDS: Sertraline* 100 MG TAB PO SCH (09:18)
--- NOTE | 2016-11-15 06:45 | DS ---
CC: Dr. Parson; Dr. Vinny Stover * DISCHARGE SUMMARY: DATE OF ADMISSION: 11/11/16 DATE OF DISCHARGE: 11/14/16 PRIMARY CARE PROVIDER: Dr. Parson. CONSULTING PIPE FOREMAN: Dr. Vinny Stover. DISCHARGE DIAGNOSES: 1. Acute blood loss anemia. 2. Upper gastrointestinal bleed. SECONDARY DIAGNOSES: 1. Prior history of gastrointestinal bleed. 2. Hypertension. 3. Hyperlipidemia. 4. Atrial fibrillation. 5. Diastolic congestive heart failure. 6. Pmklgpik-gk-ogrybd aortic stenosis. 7. Chronic obstructive pulmonary disease. 8. Hypothyroidism. 9. Recurrent aspiration pneumonia. 10. Gastroesophageal reflux disease. 11. Large hiatal hernia. 12. Portal hypertension with esophageal varices. 13. Depression. 14. Dementia. 15. Malnutrition. MEDICATIONS: 1. Seroquel 50 mg p.o. at bedtime as needed for anxiety. 2. Metoprolol tartrate 12.5 mg p.o. daily. 3. Torsemide 10 mg p.o. daily. 4. Albuterol HFA 1 puff inhaled q.6 hours p.r.n. shortness of breath. 5. Fluticasone nasal spray 2 sprays to both nares daily. 6. Spiriva 1 capsule inhaled daily. 7. Levothyroxine 115 mcg p.o. daily. 8. Lorazepam 1 mg p.o. b.i.d. p.r.n. anxiety. 9. Amlodipine 5 mg p.o. q.a.m. 10. Omeprazole 20 mg p.o. b.i.d. 11. Sertraline 200 mg p.o. daily. 12. Potassium chloride 30 mL p.o. daily. 13. Acetaminophen 650 mg p.o. q.6 hours p.r.n. pain or fever. Medication change: Her ferrous sulfate was changed from tablet to liquid and she would take 220 mg p.o. daily. HOSPITAL COURSE: Ms. Hoang is an 86-year-old lady with a past medical history as stated above who presented to the emergency room with her daughter concerned for fatigue, lethargy and black tarry stools. For more details about her presentation, I refer you to her history and physical. In the emergency room, the patient was found to have a hemoglobin of 6.8 and her stool for occult blood was positive. She was started on an octreotide drip for possible variceal bleed and also Protonix drip. CT of the brain showed no acute abnormality of the brain is evident. Mild involutional change and stigmata of chronic small vessel ischemic disease similar to her 2015 MRI, increasing magnitude of left mastoid effusions. Chest x-ray, constellation of findings suspicious for mild pulmonary vascular congestion. The patient was transfused 1 PRBC with improvement of her hemoglobin up to 8.9. She was seen in consultation by gastroenterology(Dr. Stover) and his impression was that the patient's anemia currently had 2 components, one chronic from her large hiatal hernia and possibly also contribution from portal hypertension and gastropathy and this was compounded by anemia of chronic disease. He recommended changing her ferrous sulfate from tablet to liquid as this will be less irritating and other option will be a grindable or chewable pediatric multivitamin like Flintstones if she cannot tolerate the liquid. As her last episode of melena had been 3 days prior to his consultation, it was not very clear if the octreotide played a supporting role, but he felt that in any case the burden and risk of an EGD and attempted banding was likely to be extraordinary and would best be avoided. He felt that avoiding esophageal and gastric irritants would be the best course of action. This was discussed with her daughter and she was in agreement with conservative management. The patient was seen in consultation by Speech Pathology and their recommendation for her chronic dysphagia was to continue mechanical ground solids and honey thickened liquids. I did discuss with her daughter if she would be interested in hospice evaluations again since the patient has had weight loss and now presents with anemia and GI bleed. The plan at this point is to have weekly CBCs with VNS. The results will be sent to Dr. Parson and she will be transfused as needed. If it becomes a frequent occurrence representing frequent GI bleed, at that point, she will want to pursue hospice evaluation as outpatient and also if the patient continues to decline with further weight loss, she would also consider that possibility again. The patient is medically stable to be discharged home today. PHYSICAL EXAMINATION: Vital Signs: Temperature is 98.1, heart rate is 64, respiratory rate is 17, oxygen saturation is 100% on room air and blood pressure is 142/47. General: The patient is an elderly frail lady lying in bed in no acute distress. CVS: Normal S1, S2. Regular rate and rhythm. Chest : Breath sounds present bilaterally with no added sounds. Abdomen: Soft. Bowel sounds are present. Neuro: She is alert and oriented to self only. Able to move all 4 extremities. DIET: Regular diet, soft texture, honey thickened liquids. ACTIVITIES: As tolerated. DISPOSITION: To home. STATUS WHILE IN THE HOSPITAL: Inpatient. Please keep in mind this is a summarized version of this patient's hospital stay. If you need more information, please feel free to call me at [phone] or please obtain the full medical records. TIME SPENT: Approximately 45 minutes were spent to complete this discharge. [id number]/[facility] #: [id number] [facility]
== END 2016-11-14 11:20 | disposition home or self-care (01) | DRG 811 ==
LOC: ED 14:42 → MED 19:54
PROVIDERS: ADMIT Internal Medicine; ATTEND Internal Medicine
PROC: 30233N1 Transfusion of Nonautologous Red Blood Cells into Peripheral Vein, Percutaneous Approach (ICD-10-PCS; principal; 2016-11-11)
DX: D62 Acute posthemorrhagic anemia (principal); I85.01 Esophageal varices with bleeding; E46 Unspecified protein-calorie malnutrition; J96.10 Chronic respiratory failure, unspecified whether with hypoxia or hypercapnia; K76.6 Portal hypertension; E87.0 Hyperosmolality and hypernatremia; F03.90 Unspecified dementia, unspecified severity, without behavioral disturbance, psychotic disturbance, mood disturbance, and anxiety; I50.30 Unspecified diastolic (congestive) heart failure; Z68.1 Body mass index [BMI] 19.9 or less, adult; K92.1 Melena; I11.0 Hypertensive heart disease with heart failure; I48.91 Unspecified atrial fibrillation; F32.9 Major depressive disorder, single episode, unspecified; J44.9 Chronic obstructive pulmonary disease, unspecified; E78.5 Hyperlipidemia, unspecified; I35.0 Nonrheumatic aortic (valve) stenosis; E03.9 Hypothyroidism, unspecified; K21.9 Gastro-esophageal reflux disease without esophagitis; K44.9 Diaphragmatic hernia without obstruction or gangrene; K31.89 Other diseases of stomach and duodenum; R13.10 Dysphagia, unspecified; E86.0 Dehydration; E87.6 Hypokalemia; Z66 Do not resuscitate; Z79.1 Long term (current) use of non-steroidal anti-inflammatories (NSAID); Z79.899 Other long term (current) drug therapy; Z09 Encounter for follow-up examination after completed treatment for conditions other than malignant neoplasm; Z88.5 Allergy status to narcotic agent; Z88.7 Allergy status to serum and vaccine; Z88.8 Allergy status to other drugs, medicaments and biological substances
CPT/HCPCS: 36415; 70450; 71010; 80048; 80053; 82270; 82550; 82553; 83605; 83690; 83735; 84439; 84443; 84481; 84484; 85014; 85018; 85025; 85060; 85610; 85730; 86140; 86850; 86900; 86901; 86922; 93005; 94760; A9270-GY; J1940; J2354; J3480; P9040

== ENCOUNTER 2016-11-24 08:29 | Inpatient (IN) | payer MEDICARE, MEDICAID ==
[2016-11-24] MEDS ORDERED: Albuterol/Ipratropium NEB.SOL* Albuterol 2.5 MG/Ipratropium 0.5 MG 3 ML INH PRN (08:51)
[2016-11-24] MEDS ORDERED: Albuterol/Ipratropium NEB.SOL* Albuterol 2.5 MG/Ipratropium 0.5 MG 3 ML ONE (09:01)
[2016-11-24 09:23] LABS: Hematocrit 25 % (35-47); Hemoglobin 8.1 g/dl (12.0-16.0); Mean Corpuscular HGB Conc 33 g/dl (31-36); Mean Corpuscular Hemoglobin 28 pg (27-31); Mean Corpuscular Volume 86 fL (80-97); Mean Platelet Volume 10 um3 (7.4-10.4); Red Blood Count 2.88 10^6/ul (4.0-5.4); Red Cell Distribution Width 23 % (10.5-15); White Blood Count 9.5 10^3/ul (3.5-10.8)
[2016-11-24 09:26] LABS: Add Diff/Slide Review? Slide Review Added; Comments Flag Yes
[2016-11-24 09:31] LABS: Albumin 2.8 g/dL (3.2-5.2); BUN/Creatinine Ratio 16.8 (8-20); C Reactive Protein 27.64 mg/L (< 5.00); Calcium 8.4 mg/dL (8.6-10.3); EGFR African American 72.1 (>60); Globulin 4.7 g/dL (2-4); Potassium 3.6 mmol/L (3.5-5.0); Total Bilirubin 0.9 mg/dL (0.2-1.0); Total Protein 7.5 g/dL (6.4-8.9)
[2016-11-24 09:33] LABS: Troponin I 0.03 ng/mL (<0.04)
--- NOTE | 2016-11-24 10:04 | RAD ---
Indication: Shortness of breath, COPD and CHF. 2 views of the chest are reviewed and compared to previous exam dated November 11, 2016. Cardiomegaly is noted. Left basilar infiltrate is likely present. Mild interstitial edema is noted. There is underlying COPD noted. IMPRESSION: Cardiomegaly with interstitial edema noted. Left lower lobe infiltrate is noted.
[2016-11-24] MEDS ORDERED: Levofloxacin 750 MG IVPREMIX(* 750 MG/150 ML BAG IVPB ONE (10:37)
[2016-11-24] MEDS ORDERED: Ondansetron INJ* 2 MG/ML VIAL IV PRN (11:28)
[2016-11-24] MEDS ORDERED: Acetaminophen SUPP* 650 MG SUPP PR PRN (11:28)
[2016-11-24] MEDS ORDERED: Albuterol 2.5 MG/3 ML NEB.SOL* (0.083%) INH PRN (11:30)
[2016-11-24] MEDS ORDERED: NS 0.9% 1000 ML* 1,000 ML IV SCH (11:30)
[2016-11-24] MEDS ORDERED: Zosyn per Pharmacy* NOTE FOLLOW UP SCH (12:00)
[2016-11-24] MEDS: Pantoprazole IV* 40 MG IV SCH (13:23)
[2016-11-24] MEDS: methylPREDNISolone 125 MG* 2 ML VIAL IV SCH (13:24)
[2016-11-24] MEDS: Azithromycin IV(*) 500 MG in NS 0.9% 250 ML* 250 ML IVPB SCH (13:25)
[2016-11-24] MEDS: Albuterol/Ipratropium NEB.SOL* Albuterol 2.5 MG/Ipratropium 0.5 MG 3 ML INH SCH ×3 (13:38→21:12)
--- NOTE | 2016-11-24 14:27 | HP ---
CC: Dr. Parson * HISTORY AND PHYSICAL: DATE OF ADMISSION: 11/24/16 PRIMARY CARE PROVIDER: Dr. Parson. ATTENDING PHYSICIAN WHILE IN THE HOSPITAL: Dr. Carol Conrad * (report dictated by Lorne Llanos NP) CHIEF COMPLAINT: 1. Cough. 2. Shortness of breath. HISTORY OF PRESENT ILLNESS: I would like to preface this report by saying that the patient has underlying amount of dementia and is known to have some acute delirium. Ms. Hoang is an 86-year-old female patient with a complex medical history. She was recently here and discharged on the , was treated about 10 days ago for a GI bleed, this resolved. She was doing well unfortunately though throughout the weekend she started having runny nose, she was coughing and the cough progressed throughout the weekend according to the daughter. She noted today that she felt warm, she appeared to be more short of breath, her O2 saturations at home on their machine was 88%. She was going to take the patient for her routine followup, unfortunately the daughter just felt that she would be sent here to the ER, so she brought her here fortunately and was noted that she had an elevated temperature, x- ray was concerning for pneumonia. The patient now states that it does hurt for her to breath. She does not recall the episodes of coughing throughout the weekend like her daughter said. It has been a nonproductive cough; the daughter said that she is pretty weak and unable to cough up the mucus. There has been no actual sick contacts, but she recently was hospitalized 10 days ago, in addition to this she also does have a caregiver with small children, who possibly she may have been exposed something through them. There have been no reports of vomiting or diarrhea and no black or tarry stools. There has been no complaints of abdominal pain, again the only chest pain she is having is when she takes the deep breath. When she came in the ER was found to be febrile. X-ray was concerning for pneumonia, so we were asked to evaluate for admission. PAST MEDICAL HISTORY: Significant for: 1. History of GI bleed. 2. Hypertension. 3. Hyperlipidemia. 4. AFib. 5. CHF. 6. History of severe aortic stenosis. 7. COPD. 8. Hypothyroidism. 9. Aspiration pneumonia. 10. GERD. 11. Hiatal hernia. 12. Esophageal varices. 13. Depression. 14. Dementia 15. Malnutrition. 16. Hypokalemia 17. Chronic respiratory failure. PAST SURGICAL HISTORY: She has had bilateral total knee replacements. FAMILY HISTORY: Mother had a history of CVA. Father's history, reviewed with the patient's daughter who does not recall the patient's father's family history. SOCIAL HISTORY: She does not smoke, does not drink. Surrogate decision maker is her daughter. She lives with her daughter. HOME MEDS: Include: 1. Synthroid 150 mcg daily. 2. Ativan 1 mg p.o. b.i.d. as needed. 3. Lopressor 12.5 mg p.o. daily. 4. Flonase 2 sprays both nares daily. 5. Albuterol 1 puff inhaled every 6 hours as needed. 6. Tylenol 650 mg every 6 hours as needed. 7. Norvasc 5 mg p.o. daily. 8. Demadex 10 mg daily. 9. Spiriva 1 capsule inhaled daily. 10. Zoloft 200 mg daily. 11. Seroquel 50 mg at bedtime as needed. 12. Potassium 30 cc p.o. daily. 13. Prilosec 20 mg p.o. b.i.d. ALLERGY TO MEDICATIONS: Include DIPHTHERIA, PERTUSSIS, and CODEINE. REVIEW OF SYSTEMS: Again, there is documented fever here. There was no significant weight change. No double vision or ear discharge. There was rhinorrhea. There is no sore throat. No thyroid enlargement. There is chest pain. There was shortness of breath. There is no vomiting or diarrhea. No dysuria or frequency. No loss of consciousness. No pruritus and no skin ulcerations. Review of 14 systems completed, all others negative. PHYSICAL EXAMINATION GENERAL: At this time, Ms. Hoang is an 86-year-old female patient. She is cachectic, she is chronically ill appearing. She is sitting in the ER stretcher. She does not appear to be in any acute respiratory distress. VITAL SIGNS: Blood pressure 112/43, pulse 69, respirations were 26, O2 sat 96% on 6 L, temperature 101.1. HEENT: Head is atraumatic and normocephalic. Eyes: Sclerae were anicteric. Throat: Oral mucosa appears to be moist. No oropharyngeal erythema. Neck: Supple. LUNGS: She had rhonchi noted in the left side particularly and rhonchi in the left lower base. She had equal diaphragmatic expansion. HEART: Sounds S1, S2. Regular rate and rhythm. She does have grade 2 to 3 systolic murmur heard in the aortic listening area. ABDOMEN: Soft, flat, nontender. Bowel sounds present. EXTREMITIES: Pulses 2+ throughout. No peripheral edema. She is moving all 4 extremities. NEUROLOGICAL: She is awake. She is alert to herself. She is confused to time and place. Care Aide were equal. Tongue midline. No facial drooping. Speech was clear. She had no gross focal deficits. SKIN: Intact. LABORATORY DATA/DIAGNOSTIC STUDIES: Revealed WBC 9.5, RBC of 2.88, hemoglobin 8.1, hematocrit of 25. Her last hemoglobin was 8.9. She does have a platelet count of 82,000. The INR 1.32, PTT 32.9. Sodium 133, potassium 3.6, chloride 99, bicarb 28, BUN 16, creatinine 0.95, glucose 100, lactic 1.6, calcium 8.4, total bili 0.9. AST 161, ALT 60, alk phos 237. Troponin 0.03. Albumin of 2.8. She was negative for flu. She did have an EKG obtained today, which revealed a normal sinus rhythm with a rate of 69. She did have left bundle branch block. I did review it with her previous EKG from 2016, this appears to be similar. She had chest a x-ray today; on my review I do appreciate an infiltrate in the left lower base. No effusions were noted. Radiology read cardiomegaly with interstitial edema noted, left lower lobe infiltrate is noted. She did have an echo from 2 years ago that did show an EF of 55% to 60%. Old medical records were reviewed. ASSESSMENT AND PLAN: Mrs. Hoang is an 86-year-old female patient with multiple medical problems coming into the ER today with complaints of cough in addition to this fever and now on x-ray concerning for pneumonia. She will be admitted under observation status for: 1. Pneumonia. At this point obviously the concern is that she may have aspirated again. She has had a history of this. I am going to put her on Zosyn and azithromycin she was just here in the hospital. If she does not improve we can add vancomycin, but at this point I am holding off. She looks pretty stable right now. The plan will be to give her a liter of fluids, pain culture her, get a speech evaluation, maker her n.p.o., and see what the recommendations are from Speech. Continue with nebs and continue with flutter valve and also continue with steroid as well and nebs around the clock and aggressive pulmonary toileting. I will send off urine antigens and also urinalysis as well. 2. Gastrointestinal bleed. Continue b.i.d. Protonix. I am holding on DVT prophylaxis with heparin because of the recent bleed. 3. Hypertension. Blood pressure is stable now. I am just going to continue her beta veda. I switched over to IV. She did take this morning with her daughter, we will monitor. 4. Hyperlipidemia. Continue with current medical regimen. 5. Atrial fibrillation. She is in sinus rhythm. She is not on any blood thinners. She has had a gastrointestinal bleed. 6. History of congestive heart failure. Again, she does not appear to be in failure. Currently it does appear to be a pneumonia process. I am holding her diuretics. She does appear to be on the dry side. We will give her a liter of fluids and diurese as needed. 7. Aortic stenosis. Again at this point supportive care and continue to follow with her primary at this point. 8. Chronic obstructive pulmonary disease. She did have some wheezing on exam, she will get steroids, nebs and antibiotics and again aggressive pulmonary toileting. 9. Hypothyroidism. Continue her Synthroid. 10. Gastroesophageal reflux disease. She is on b.i.d. PPI. 11. History of esophageal varices. This is not an active issue. We will monitor for any bleeding. H and H is stable. We will check CBC in the morning. 12. Depression. We will continue her meds when able. 13. History of dementia. Continue with supportive care. She does have some acute delirium probably from the infection, if need be I will give her IV or IM medications to help as she does get profoundly confused at bedtime according to her daughter, but we will monitor. 14. History of hypokalemia. We will monitor this with BMPs in the morning. 15. Elevated liver function tests. Again she could have an atypical ammonia that could be causing this. For now I am going to trend these and we will follow and we will again get the legionella antigens. 16. DVT prophylaxis. She will be placed on SCDs. 17. Code status. She is a DNR. 18. Fluids, electrolytes, and nutrition. N.p.o. for the time being until speech eval and then normal saline at 100 an hour for a liter. TIME SPENT: Time spent on the admission was 60 minutes, greater than half the time spent [id number] with the patient obtaining my history and physical, the other half the time was spent going over the plan of care with the patient and implementing plan of care. I did discuss the plan of care with my attending physician, Dr. Conrad, she is in agreement. LORNE LLANOS, ANGELICA [id number]/[facility] #: [id number] MTDD
[2016-11-24] MEDS: ZOSYN 3.375 GM Q8H per EXTENDED INFUSION IVPB SCH ×4 (14:50→22:07)
[2016-11-24] MEDS ORDERED: QUEtiapine TAB* 25 MG PO PRN (17:06)
--- NOTE | 2016-11-24 18:43 | ED ---
Les Reveles Rebecca, scribed for Rick Farris MD on 11/24/16 at 0907 . Shortness of Breath - HPI Summary HPI Summary: Pt is an 86 y/o F BIBA accompanied by her daughter who presents to ED c/o SOB with cough. Daughter reports that started 2 days ago at approximately 0600 she began coughing as though she were trying to produce phlegm. Started yesterday morning it turned into more of a dry cough that was constant. Notes that this morning at 0600 her O2 saturation dropped to about 89% which is why her daughter called EMS today. Sx aggravated and alleviated by nothing, unchanged by Nebulizer treatments. Fever also noted in triage today. PMHx CHF and PNA. 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 - History of Current Complaint Chief Complaint: EDShortnessOfBreath Time Seen by Provider: 11/24/16 08:51 Hx Obtained From: Family/Fish Fryer - Daughter Onset/Duration: Lasting Days - 2 days, Still Present Dyspnea At: Rest Aggrevating Factors: Nothing Alleviating Factors: Nothing Associated Signs & Symptoms: Cough (Nonproductive), Fever - Allergy/Home Medications Allergies/Adverse Reactions: Allergies Allergy/AdvReac Type Severity Reaction Status Date / Time Diphtheria Toxoid Allergy Unknown Verified 09/24/16 11:57 Reaction Details Pertussis Vaccine Allergy Unknown Verified 09/24/16 11:57 Reaction Details Codeine AdvReac Unknown doesnt Verified 09/24/16 11:57 work well with pt tetanus Allergy Unknown Uncoded 09/24/16 11:57 Reaction Details PMH/Surg Hx/FS Hx/Imm Hx Endocrine/Hematology History: Reports: Hx Anticoagulant Therapy, Hx Blood Transfusions, Hx Thyroid Disease - hypothyroidism, Hx Anemia, Other Endocrine/ Hematological Disorders - thrombocytopenia Denies: Hx Diabetes, Hx Unexplained Bleeding Cardiovascular History: Reports: Hx Angina, Hx Cardiomegaly, Hx Congenital Heart Disease, Hx Congestive Heart Failure, Hx Coronary Artery Disease, Hx Hypercholesterolemia, Hx Hypertension, Hx Rheumatic Fever, Hx Valvular Heart Disease - AORTIC STENOSIS, Other Cardiovascular Problems/Disorders Denies: Hx Auto Implanted Cardiovert Defib, Hx Pacemaker/ICD Respiratory History: Reports: Hx Chronic Obstructive Pulmonary Disease (COPD) - on 2L home O2 at night, during the day only if needed, Hx Pneumonia, Hx Pulmonary Edema, Other Respiratory Problems/Disorders - COPD Denies: Hx Asthma GI History: Reports: Hx Diverticulosis, Hx Gastroesophageal Reflux Disease, Hx Gastrointestinal Bleed, Hx Hiatal Hernia - Rene lesions, Other GI Disorders - gastric erosions Denies: Hx Ulcer History: Denies: Hx Renal Disease Musculoskeletal History: Reports: Hx Arthritis, Hx Back Problems - 4 broken vertabrae, Hx Bursitis, Hx Orthopedic Injury - left hip fracture, Hx Osteoporosis, Other Musculoskeletal History - knee replacements Denies: Hx Scoliosis, Hx Tendonitis Sensory History: Reports: Hx Cataracts - surgery to both eyes, Hx Contacts or Glasses, Hx Vision Problem, Hx Deafness - [place], Hx Hearing Problem Denies: Hx Hearing Aid Opthamlomology History: Reports: Hx Cataracts - surgery to both eyes, Hx Contacts or Glasses, Hx Vision Problem Neurological History: Reports: Hx Dementia Denies: Hx Migraine, Hx Seizures Psychiatric History: Reports: Hx Anxiety, Hx Depression, Hx Panic Disorder, Hx Post Traumatic Stress Disorder - from loss of son Nov 2014 Denies: Hx Suicide Attempt, Hx Substance Abuse - Cancer History Cancer Type, Location and Year: NO CANCER FOUND IN TUMORS FROM LOBECTOMY - Surgical History Surgery Procedure, Year, and Place: LOBECTOMY, BILAT TOTAL KNEE REPLACEMENTS, Bilat cataracts Hx Anesthesia Reactions: No - Immunization History Date of Tetanus Vaccine: 07/21 Date of Influenza Vaccine: Fall 2013 Infectious Disease History: No Infectious Disease History: Denies: Hx Hepatitis, Hx Human Immunodeficiency Virus (HIV), Traveled Outside the [place] in Last 30 Days - Family History Known Family History: Negative: Other - malignant hyperthermia, anesthesia reaction - Social History Alcohol Use: Unable to determind Alcohol Amount: Occasional glass of wine Substance Use Type: Reports: None Smoking Status (MU): Former Smoker Type: Cigarettes Amount Used/How Often: 4 or 5 a day Length of Time of Smoking/Using Tobacco: 15 Have You Smoked in the Last Year: No Review of Systems Positive: Fever Positive: Shortness Of Breath, Cough All Other Systems Reviewed And Are Negative: Yes Physical Exam - Summary Physical Exam Summary: VITAL SIGNS: Reviewed. GENERAL: ~Patient is an elderly, fragile female who is lying comfortable in the stretcher. ~Patient is not in any acute respiratory distress. HEAD AND FACE: No signs of trauma. ~No ecchymosis, hematomas or skull depressions. No sinus tenderness. EYES: PERRLA, EOMI x 2, No injected conjunctiva, no nystagmus. EARS: Hearing grossly intact. Ear canals and tympanic membranes are within normal limits. MOUTH: Dry oral mucosa. NECK: Supple, trachea is midline, no adenopathy, no JVD, no carotid bruit, no c- spine tenderness, neck with full ROM. CHEST: Symmetric, no tenderness at palpation LUNGS: Bilateral crackles with wheezing to auscultation. CVS: Regular rate and rhythm, S1 and S2 present, ejection systolic murmur 4/6, no gallops appreciated. ABDOMEN: Soft, non-tender. No signs of distention. No rebound no guarding, and no masses palpated. Bowel sounds are normal. EXTREMITIES: FROM in all major joints, no edema, no cyanosis or clubbing. NEURO: Alert but not oriented. No acute neurological deficits. SKIN: Dry and warm Triage Information Reviewed: Yes Vital Signs On Initial Exam: Initial Vitals Temp Pulse Resp BP Pulse Ox 101.1 F 68 30 119/48 95 11/24/16 08:38 11/24/16 08:38 11/24/16 08:38 11/24/16 08:38 11/24/16 08:38 Vital Signs Reviewed: Yes Diagnostics - Vital Signs Vital Signs Temp Pulse Resp BP Pulse Ox 11/24/16 08:38 101.1 F 68 30 119/48 95 - Laboratory Lab Results: Lab Results 11/24/16 11/24/16 11/24/16 Range/Units 09:00 09:00 09:00 WBC 9.5 (3.5-10.8) 10^3/ul RBC 2.88 L (4.0-5.4) 10^6/ul Hgb 8.1 L (12.0-16.0) g/dl Hct 25 L (35-47) % MCV 86 (80-97) fL MCH 28 (27-31) pg MCHC 33 (31-36) g/dl RDW 23 H (10.5-15) % Plt Count 82 L (150-450) 10^3/ul MPV 10 (7.4-10.4) um3 Neut % (Auto) 80.4 (38-83) % Lymph % (Auto) 3.9 L (25-47) % Crane % (Auto) 15.1 H (1-9) % Eos % (Auto) 0.1 (0-6) % Baso % (Auto) 0.5 (0-2) % Absolute Neuts (auto) 7.6 (1.5-7.7) 10^3/ul Absolute Lymphs (auto) 0.4 L (1.0-4.8) 10^3/ul Absolute Monos (auto) 1.4 H (0-0.8) 10^3/ul Absolute Eos (auto) 0 (0-0.6) 10^3/ul Absolute Basos (auto) 0 (0-0.2) 10^3/ul Absolute Nucleated RBC 0 10^3/ul Nucleated RBC % 0 Hem Pathologist Commnt INR (Anticoag Therapy) 1.32 H (0.89-1.11) APTT 32.9 (26.0-36.3) seconds Sodium 133 (133-145) mmol/L Potassium 3.6 (3.5-5.0) mmol/L Chloride 99 L (101-111) mmol/L Carbon Dioxide 28 (22-32) mmol/L Anion Gap 6 (2-11) mmol/L BUN 16 (6-24) mg/dL Creatinine 0.95 (0.51-0.95) mg/dL Est GFR ( Amer) 72.1 (>60) Est GFR (Non-Af Amer) 56.0 (>60) BUN/Creatinine Ratio 16.8 (8-20) Glucose 100 (70-100) mg/dL Lactic Acid (0.5-2.0) mmol/L Calcium 8.4 L (8.6-10.3) mg/dL Total Bilirubin 0.90 (0.2-1.0) mg/dL AST 161 H (13-39) U/L ALT 60 H (7-52) U/L Alkaline Phosphatase 237 H (34-104) U/L Troponin I 0.03 (<0.04) ng/mL C-Reactive Protein 27.64 H (< 5.00) mg/L Total Protein 7.5 (6.4-8.9) g/dL Albumin 2.8 L (3.2-5.2) g/dL Globulin 4.7 H (2-4) g/dL Albumin/Globulin Ratio 0.6 L (1-3) Influenza A (Rapid) (Negative) Influenza B (Rapid) (Negative) 11/24/16 11/24/16 Range/Units 09:00 09:35 WBC (3.5-10.8) 10^3/ul RBC (4.0-5.4) 10^6/ul Hgb (12.0-16.0) g/dl Hct (35-47) % MCV (80-97) fL MCH (27-31) pg MCHC (31-36) g/dl RDW (10.5-15) % Plt Count (150-450) 10^3/ul MPV (7.4-10.4) um3 Neut % (Auto) (38-83) % Lymph % (Auto) (25-47) % Crane % (Auto) (1-9) % Eos % (Auto) (0-6) % Baso % (Auto) (0-2) % Absolute Neuts (auto) (1.5-7.7) 10^3/ul Absolute Lymphs (auto) (1.0-4.8) 10^3/ul Absolute Monos (auto) (0-0.8) 10^3/ul Absolute Eos (auto) (0-0.6) 10^3/ul Absolute Basos (auto) (0-0.2) 10^3/ul Absolute Nucleated RBC 10^3/ul Nucleated RBC % Hem Pathologist Commnt INR (Anticoag Therapy) (0.89-1.11) APTT (26.0-36.3) seconds Sodium (133-145) mmol/L Potassium (3.5-5.0) mmol/L Chloride (101-111) mmol/L Carbon Dioxide (22-32) mmol/L Anion Gap (2-11) mmol/L BUN (6-24) mg/dL Creatinine (0.51-0.95) mg/dL Est GFR ( Amer) (>60) Est GFR (Non-Af Amer) (>60) BUN/Creatinine Ratio (8-20) Glucose (70-100) mg/dL Lactic Acid 1.6 (0.5-2.0) mmol/L Calcium (8.6-10.3) mg/dL Total Bilirubin (0.2-1.0) mg/dL AST (13-39) U/L ALT (7-52) U/L Alkaline Phosphatase (34-104) U/L Troponin I (<0.04) ng/mL C-Reactive Protein (< 5.00) mg/L Total Protein (6.4-8.9) g/dL Albumin (3.2-5.2) g/dL Globulin (2-4) g/dL Albumin/Globulin Ratio (1-3) Influenza A (Rapid) Negative (Negative) Influenza B (Rapid) Negative (Negative) Result Diagrams: 11/24/16 09:00 11/24/16 09:00 Lab Statement: Any lab studies that have been ordered have been reviewed, and results considered in the medical decision making process. - Radiology CXR Xray Interpretation: Positive (See Comments) - Cardiomegaly with interstitial edema noted. Left lower lobe infiltrate is noted. ED physician has read this report and agrees. Radiology Interpretation Completed By: Radiologist - EKG 09:12 Cardiac Rate: NL - 68 BPM EKG Interpretation: SR. LBBB. Course/Dx - Course Assessment/Plan: Pt is an 86 y/o F BIBA accompanied by her daughter who presents to ED c/o SOB with cough. Daughter reports that started 2 days ago at approximately 0600 she began coughing as though she were trying to produce phlegm. Started yesterday morning it turned into more of a dry cough that was constant. Notes that this morning at 0600 her O2 saturation dropped to about 89 % which is why her daughter called EMS today. Sx aggravated and alleviated by nothing, unchanged by Nebulizer treatments. Fever also noted in triage today. PMHx CHF and PNA. 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 Test results show a RBC of 2.88, chronic anemia, increased LFTs, and CRP 27.64. Cardiomegaly with interstitial edema noted. Left lower lobe infiltrate is noted. ED physician has read this report and agrees. Initially, the patient was started on IV fluids and she was started on Zosyn and Levaquin because I believe the patient may have septic pneumonitis. I spoke with the patients daughter about hospice care and the patients daughter reports that she is not ready for the mother to be put in hospice. At this point, I discussed the case with Dr. Jimenez who accepts the patient for further workup and management. The patient is stable. She is alert but not oriented. - Diagnoses Differential Diagnosis/HQI/PQRI: Positive: Bronchitis, CHF, Chest Wall Pain, COPD Exacerbation, Pneumonia, Pulmonary Edema Provider Diagnoses: Pneumonia, Anemia - Physician Notifications Discussed Care of Patient With: Carol Jimenez Time Discussed With Above Provider: 10:44 Instructed by Provider To: Other - I consulted with Dr. Jimenez, hospitalist, regarding patient care. She admits the patient to [facility] – [place]. Discharge - Discharge Plan Condition: Fair Disposition: ADMITTED TO [facility] Discharge Disposition Comment: By Dr. Jimenez. The documentation as recorded by the Les arnold Rebecca accurately reflects the service I personally performed and the decisions made by , Rick Farris MD.
[2016-11-24] MEDS: Mometasone/Formoter 200/5 MDI INH SCH (21:14)
[2016-11-25] MEDS: Pantoprazole IV* 40 MG IV SCH ×2 (00:01→12:22)
[2016-11-25] MEDS: Albuterol/Ipratropium NEB.SOL* Albuterol 2.5 MG/Ipratropium 0.5 MG 3 ML INH SCH ×6 (00:01→20:16)
[2016-11-25] MEDS: methylPREDNISolone 125 MG* 2 ML VIAL IV SCH ×2 (00:01→12:22)
[2016-11-25] MEDS: Levothyroxine TAB* 150 MCG TAB PO SCH (05:26)
[2016-11-25] MEDS: ZOSYN 3.375 GM Q8H per EXTENDED INFUSION IVPB SCH ×6 (05:27→22:20)
[2016-11-25 05:28] LABS: Hematocrit 23 % (35-47); Hemoglobin 7.6 g/dl (12.0-16.0); Mean Corpuscular HGB Conc 32 g/dl (31-36); Mean Corpuscular Hemoglobin 28 pg (27-31); Mean Corpuscular Volume 87 fL (80-97); Mean Platelet Volume 10 um3 (7.4-10.4); Red Blood Count 2.71 10^6/ul (4.0-5.4); White Blood Count 6.2 10^3/ul (3.5-10.8)
[2016-11-25 05:36] LABS: Comments Flag Yes; Red Cell Distribution Width 22 % (10.5-15)
[2016-11-25 05:37] LABS: Add Diff/Slide Review? Slide Review Added
[2016-11-25] MEDS ORDERED: Levothyroxine INJ* 100 MCG/5 ML VIAL IV SCH (06:00)
[2016-11-25 06:04] LABS: Albumin 2.5 g/dL (3.2-5.2); BUN/Creatinine Ratio 18.9 (8-20); Calcium 7.8 mg/dL (8.6-10.3); EGFR African American 63.5 (>60); EGFR Non-African American 49.4 (>60); Globulin 4.4 g/dL (2-4); Potassium 3.6 mmol/L (3.5-5.0); Total Bilirubin 0.8 mg/dL (0.2-1.0); Total Protein 6.9 g/dL (6.4-8.9)
[2016-11-25] MEDS: Mometasone/Formoter 200/5 MDI INH SCH ×2 (08:45→20:19)
[2016-11-25] MEDS ORDERED: Metoprolol Tartrate IV* 1 MG/ML 5 ML VIAL IV SCH (09:00)
[2016-11-25 09:32] LABS: Direct Bilirubin 0.4 mg/dL (0.03-0.18); Indirect Bilirubin 0.4 mg/dL (0.3-1.0)
--- NOTE | 2016-11-25 09:42 | PN ---
Subjective Date of Service: 11/25/16 Interval History: HOSPITALIST PROGRESS NOTE Patient seen and examined at bedside. Objective Active Medications: Acetaminophen (Tylenol Supp*) 650 mg [place] Q4H PRN PRN Reason: FEVER/PAIN Albuterol (Ventolin 2.5 Mg/3 Ml Neb.Zoila*) 2.5 mg INH Q2H PRN PRN Reason: SOB/WHEEZING Albuterol/Ipratropium (Duoneb (Albuterol 2.5 Mg/Ipratropium 0.5 Mg)) 1 neb INH [id number] AWAKE [facility] Last Admin: 11/25/16 08:40 Dose: 1 neb Fluticasone Propionate (Flonase Nasal [place] 50mcg*) 2 spray BOTH NARES DAILY [facility] Azithromycin 500 mg/ Sodium (Chloride) 250 mls @ 250 mls/hr IVPB Q24H [facility] Last Admin: 11/24/16 13:25 Dose: 250 mls/hr Piperacillin Sod/Tazobactam (Sod 3.375 gm/ Sodium Chloride) 100 mls @ 25 mls/ hr IVPB Q8H [facility] Last Admin: 11/25/16 05:27 Dose: 25 mls/hr Levothyroxine Sodium (Synthroid Tab*) 150 mcg PO 0600 [facility] Last Admin: 11/25/16 05:26 Dose: 150 mcg Lorazepam (Ativan Tab(*)) 1 mg PO BID PRN PRN Reason: ANXIETY Methylprednisolone Sodium Succinate (Solu-Medrol 125mg *) 60 mg IV Q12H [facility] Last Admin: 11/25/16 00:01 Dose: 60 mg Metoprolol Tartrate (Lopressor Tab*) 12.5 mg PO DAILY [facility] Mometasone Furoate/Formoterol Fumar (Dulera 200/5 Mdi*) 2 puff INH BID [facility] Last Admin: 11/25/16 08:45 Dose: 2 puff Ondansetron HCl (Zofran Inj*) 4 mg IV Q6H PRN PRN Reason: NAUSEA Pantoprazole Sodium (Protonix Iv*) 40 mg IV Q12H [facility] Last Admin: 11/25/16 00:01 Dose: 40 mg Pharmacy Consult (Zosyn Per Pharmacy*) 1 note FOLLOW UP .ZOSYN PER PHARMACY [facility] Quetiapine Fumarate (Seroquel Tab*) 50 mg PO BEDTIME PRN PRN Reason: ANXIETY Sertraline HCl (Zoloft*) 200 mg PO DAILY [facility] Vital Signs 11/24/16 11/24/16 11/24/16 11:00 11:30 12:00 Temperature Pulse Rate 69 67 Respiratory 24 Rate Blood Pressure 101/39 101/44 83/33 (mmHg) O2 Sat by Pulse 82 98 Oximetry 11/24/16 11/24/16 11/24/16 12:03 12:43 13:40 Temperature 98.8 F Pulse Rate 98 63 Respiratory 18 26 Rate Blood Pressure 95/34 98/34 (mmHg) O2 Sat by Pulse 100 95 Oximetry 11/24/16 11/24/16 11/24/16 15:21 16:55 17:22 Temperature 98.4 F Pulse Rate 67 71 Respiratory 22 26 Rate Blood Pressure 97/47 (mmHg) O2 Sat by Pulse 95 98 97 Oximetry 11/24/16 11/24/16 11/24/16 20:14 21:15 23:26 Temperature 98.1 F 97.5 F Pulse Rate 73 70 73 Respiratory 21 16 24 Rate Blood Pressure 96/56 92/40 (mmHg) O2 Sat by Pulse 94 99 98 Oximetry 11/25/16 11/25/16 11/25/16 00:00 03:36 08:20 Temperature 97.3 F Pulse Rate 72 68 Respiratory 20 18 Rate Blood Pressure 107/47 (mmHg) O2 Sat by Pulse 98 97 100 Oximetry Result Diagrams: 11/25/16 05:02 11/25/16 05:02 Additional Lab and Data: Lab Results 11/24/16 11/24/16 11/24/16 Range/Units 09:00 09:00 09:00 WBC 9.5 (3.5-10.8) 10^3/ul RBC 2.88 L (4.0-5.4) 10^6/ul Hgb 8.1 L (12.0-16.0) g/dl Hct 25 L (35-47) % MCV 86 (80-97) fL MCH 28 (27-31) pg MCHC 33 (31-36) g/dl RDW 23 H (10.5-15) % Plt Count 82 L (150-450) 10^3/ul MPV 10 (7.4-10.4) um3 Neut % (Auto) 80.4 (38-83) % Lymph % (Auto) 3.9 L (25-47) % Ralls % (Auto) 15.1 H (1-9) % Eos % (Auto) 0.1 (0-6) % Baso % (Auto) 0.5 (0-2) % Absolute Neuts (auto) 7.6 (1.5-7.7) 10^3/ul Absolute Lymphs (auto) 0.4 L (1.0-4.8) 10^3/ul Absolute Monos (auto) 1.4 H (0-0.8) 10^3/ul Absolute Eos (auto) 0 (0-0.6) 10^3/ul Absolute Basos (auto) 0 (0-0.2) 10^3/ul Absolute Nucleated RBC 0 10^3/ul Nucleated RBC % 0 Hem Pathologist Commnt INR (Anticoag Therapy) 1.32 H (0.89-1.11) APTT 32.9 (26.0-36.3) seconds Sodium 133 (133-145) mmol/L Potassium 3.6 (3.5-5.0) mmol/L Chloride 99 L (101-111) mmol/L Carbon Dioxide 28 (22-32) mmol/L Anion Gap 6 (2-11) mmol/L BUN 16 (6-24) mg/dL Creatinine 0.95 (0.51-0.95) mg/dL Est GFR ( Amer) 72.1 (>60) Est GFR (Non-Af Amer) 56.0 (>60) BUN/Creatinine Ratio 16.8 (8-20) Glucose 100 (70-100) mg/dL Lactic Acid (0.5-2.0) mmol/L Calcium 8.4 L (8.6-10.3) mg/dL Total Bilirubin 0.90 (0.2-1.0) mg/dL AST 161 H (13-39) U/L ALT 60 H (7-52) U/L Alkaline Phosphatase 237 H (34-104) U/L Troponin I 0.03 (<0.04) ng/mL C-Reactive Protein 27.64 H (< 5.00) mg/L Total Protein 7.5 (6.4-8.9) g/dL Albumin 2.8 L (3.2-5.2) g/dL Globulin 4.7 H (2-4) g/dL Albumin/Globulin Ratio 0.6 L (1-3) Influenza A (Rapid) (Negative) Influenza B (Rapid) (Negative) 11/24/16 11/24/16 Range/Units 09:00 09:35 WBC (3.5-10.8) 10^3/ul RBC (4.0-5.4) 10^6/ul Hgb (12.0-16.0) g/dl Hct (35-47) % MCV (80-97) fL MCH (27-31) pg MCHC (31-36) g/dl RDW (10.5-15) % Plt Count (150-450) 10^3/ul MPV (7.4-10.4) um3 Neut % (Auto) (38-83) % Lymph % (Auto) (25-47) % Ralls % (Auto) (1-9) % Eos % (Auto) (0-6) % Baso % (Auto) (0-2) % Absolute Neuts (auto) (1.5-7.7) 10^3/ul Absolute Lymphs (auto) (1.0-4.8) 10^3/ul Absolute Monos (auto) (0-0.8) 10^3/ul Absolute Eos (auto) (0-0.6) 10^3/ul Absolute Basos (auto) (0-0.2) 10^3/ul Absolute Nucleated RBC 10^3/ul Nucleated RBC % Hem Pathologist Commnt INR (Anticoag Therapy) (0.89-1.11) APTT (26.0-36.3) seconds Sodium (133-145) mmol/L Potassium (3.5-5.0) mmol/L Chloride (101-111) mmol/L Carbon Dioxide (22-32) mmol/L Anion Gap (2-11) mmol/L BUN (6-24) mg/dL Creatinine (0.51-0.95) mg/dL Est GFR ( Amer) (>60) Est GFR (Non-Af Amer) (>60) BUN/Creatinine Ratio (8-20) Glucose (70-100) mg/dL Lactic Acid 1.6 (0.5-2.0) mmol/L Calcium (8.6-10.3) mg/dL Total Bilirubin (0.2-1.0) mg/dL AST (13-39) U/L ALT (7-52) U/L Alkaline Phosphatase (34-104) U/L Troponin I (<0.04) ng/mL C-Reactive Protein (< 5.00) mg/L Total Protein (6.4-8.9) g/dL Albumin (3.2-5.2) g/dL Globulin (2-4) g/dL Albumin/Globulin Ratio (1-3) Influenza A (Rapid) Negative (Negative) Influenza B (Rapid) Negative (Negative) Assess/Plan/Problems-Billing Assessment:
[2016-11-25] MEDS: Sertraline* 100 MG TAB PO SCH (10:05)
[2016-11-25] MEDS: Metoprolol Tartrate TAB* 25 MG PO SCH (10:05)
[2016-11-25] MEDS: Fluticasone NASAL SPRAY 50MCG* 16 gm SPRAY BTL BOTH NARES SCH (10:15)
--- NOTE | 2016-11-25 10:41 | RAD ---
INDICATION: Transaminitis. COMPARISON: Comparison is made with a prior right upper quadrant ultrasound from February 16, [address] of the abdomen and pelvis from January 20, 2015. TECHNIQUE: Multiple real-time images of the right upper quadrant were obtained. FINDINGS: The gallbladder appears distended. There are gallstones present. In addition there is a 1.2 cm soft tissue echogenicity area present within the gallbladder possibly representing a sludge ball versus a polyp. There is mild gallbladder wall thickening. No positive sonographic Mireles sign is present. There is a small amount of ascites adjacent to the gallbladder and liver. No intra or extrahepatic ductal distention is present. The common bile duct measured 0.4 cm in diameter. The liver is normal in size and heterogeneous in echogenicity with a mildly nodular contour suspicious for cirrhosis. No significant focal hepatic abnormality is seen. The pancreas is partially or by overlying bowel gas. The right kidney appears slightly small with cortical thinning measuring 9.0 x 3.0 x 4.1 cm. There are 2 small cysts present measuring 1.1 x 0.9 x 1.0 and 0.7 x 0.6 x 0.9 cm each. No hydronephrosis is seen. IMPRESSION: 1. SMALL AMOUNT OF ASCITES. 2. HETEROGENEOUS SLIGHTLY NODULAR LIVER SUGGESTING THE POSSIBILITY OF CIRRHOSIS. 3. CHOLELITHIASIS. IN ADDITION THERE IS A 1.2 CM NODULE PRESENT WITHIN THE GALLBLADDER CONSISTENT WITH EITHER A POLYP OR SLUDGE BALL.
[2016-11-25] MEDS: Azithromycin IV(*) 500 MG in NS 0.9% 250 ML* 250 ML IVPB SCH (12:27)
--- NOTE | 2016-11-25 13:13 | PN ---
Subjective Date of Service: 11/25/16 Interval History: HOSPITALIST PROGRESS NOTE Patient seen and examined at bedside. She feels well today, offers no complaints. Family History: Unchanged from Admission Social History: Unchanged from Admission Past Medical History: Unchanged from Admission Objective Active Medications: Acetaminophen (Tylenol Supp*) 650 mg [place] Q4H PRN PRN Reason: FEVER/PAIN Albuterol (Ventolin 2.5 Mg/3 Ml Neb.Zoila*) 2.5 mg INH Q2H PRN PRN Reason: SOB/WHEEZING Albuterol/Ipratropium (Duoneb (Albuterol 2.5 Mg/Ipratropium 0.5 Mg)) 1 neb INH [id number] AWAKE [facility] Last Admin: 11/25/16 11:33 Dose: 1 neb Fluticasone Propionate (Flonase Nasal [place] 50mcg*) 2 spray BOTH NARES DAILY [facility] Last Admin: 11/25/16 10:15 Dose: Not Given Azithromycin 500 mg/ Sodium (Chloride) 250 mls @ 250 mls/hr IVPB Q24H [facility] Last Admin: 11/25/16 12:27 Dose: 250 mls/hr Piperacillin Sod/Tazobactam (Sod 3.375 gm/ Sodium Chloride) 100 mls @ 25 mls/ hr IVPB Q8H [facility] Last Admin: 11/25/16 05:27 Dose: 25 mls/hr Levothyroxine Sodium (Synthroid Tab*) 150 mcg PO 0600 [facility] Last Admin: 11/25/16 05:26 Dose: 150 mcg Lorazepam (Ativan Tab(*)) 1 mg PO BID PRN PRN Reason: ANXIETY Methylprednisolone Sodium Succinate (Solu-Medrol 125mg *) 60 mg IV Q12H [facility] Last Admin: 11/25/16 12:22 Dose: 60 mg Metoprolol Tartrate (Lopressor Tab*) 12.5 mg PO DAILY [facility] Last Admin: 11/25/16 10:05 Dose: 12.5 mg Mometasone Furoate/Formoterol Fumar (Dulera 200/5 Mdi*) 2 puff INH BID [facility] Last Admin: 11/25/16 08:45 Dose: 2 puff Ondansetron HCl (Zofran Inj*) 4 mg IV Q6H PRN PRN Reason: NAUSEA Pantoprazole Sodium (Protonix Iv*) 40 mg IV Q12H [facility] Last Admin: 11/25/16 12:22 Dose: 40 mg Pharmacy Consult (Zosyn Per Pharmacy*) 1 note FOLLOW UP .ZOSYN PER PHARMACY [facility] Quetiapine Fumarate (Seroquel Tab*) 50 mg PO BEDTIME PRN PRN Reason: ANXIETY Sertraline HCl (Zoloft*) 200 mg PO DAILY [facility] Last Admin: 11/25/16 10:05 Dose: 200 mg Vital Signs 11/25/16 11/25/16 11/25/16 06:51 08:20 10:06 Temperature 97.9 F 97.6 F Pulse Rate 71 68 74 Respiratory 20 18 20 Rate Blood Pressure 120/57 108/52 (mmHg) O2 Sat by Pulse 97 100 98 Oximetry Oxygen Devices in Use Now: Nasal Cannula Appearance: Elderly frail lady lying in bed in NAD. Eyes: No Scleral Icterus Ears/Nose/Mouth/Throat: Mucous Membranes Moist Neck: Trachea Midline Respiratory: Symmetrical Chest Expansion and Respiratory Effort, - - BS+ bilaterally coarse, no added sounds Cardiovascular: RRR - Normal S1 and S2 Neurological: - - AAOx1 (self), ZENG Lines/Tubes/Other Access: Clean, Dry and Intact Peripheral IV Nutrition: Taking PO's Result Diagrams: 11/25/16 05:02 11/25/16 05:02 Assess/Plan/Problems-Billing Assessment: Mrs. Hoang is an 86yo F with PMH of prior GI bleed, HTN, HLD, Afib, diastolic CHF , moderate to severe , COPD, hypothyroidism, recurrent aspiration pneumonia, GERD, large hiatal hernia, portal HTN with esophageal varices, depression, dementia, malnutrition, recent admission for GI bleed, who presented to ED with c/o dyspnea, found to have aspiration pneumonia. - Patient Problems (1) Aspiration pneumonia Comment: - Patient has know chronic aspiration. - Continue treatment with Zosyn and azithromycin. - Speech pathology eval appreciated. (2) Anemia Comment: - Suspect her drop in H/H is dilutional due to IVF. - No signs of active GI bleed at this time, but at risk. - Continue to monitor. (3) GI bleed Comment: - Likely associated with her esophageal varices - continue PPI. (4) Transaminitis Comment: - Patient has known h/o cirrhosis with portal HTN and esophageal varices. - Check RUQ US and continue to monitor LFTs. (5) DVT prophylaxis Comment: - Pharmacological prophylaxis contraindicated in the setting of recent GI bleed. - SCDs. (6) DNR (do not resuscitate) Status and Disposition: Inpatient for management of aspiration pneumonia requiring >48h for stabilization.
[2016-11-26] MEDS: Albuterol/Ipratropium NEB.SOL* Albuterol 2.5 MG/Ipratropium 0.5 MG 3 ML INH SCH ×7 (00:09→23:31)
[2016-11-26] MEDS: Pantoprazole IV* 40 MG IV SCH ×2 (00:38→13:13)
[2016-11-26] MEDS: methylPREDNISolone 125 MG* 2 ML VIAL IV SCH (00:38)
[2016-11-26 05:48] LABS: Hematocrit 25 % (35-47); Hemoglobin 8.1 g/dl (12.0-16.0); Mean Corpuscular HGB Conc 32 g/dl (31-36); Mean Corpuscular Hemoglobin 28 pg (27-31); Mean Corpuscular Volume 85 fL (80-97); Mean Platelet Volume 9 um3 (7.4-10.4); Red Blood Count 2.94 10^6/ul (4.0-5.4); White Blood Count 14.1 10^3/ul (3.5-10.8)
[2016-11-26 05:49] LABS: Comments Flag Yes
[2016-11-26 05:52] LABS: Red Cell Distribution Width 22 % (10.5-15)
[2016-11-26] MEDS: Levothyroxine TAB* 150 MCG TAB PO SCH (06:00)
[2016-11-26] MEDS: ZOSYN 3.375 GM Q8H per EXTENDED INFUSION IVPB SCH ×6 (06:00→20:46)
[2016-11-26 06:02] LABS: Albumin 2.6 g/dL (3.2-5.2); BUN/Creatinine Ratio 27.4 (8-20); Calcium 8.1 mg/dL (8.6-10.3); EGFR African American 97.7 (>60); Globulin 4.5 g/dL (2-4); Potassium 2.9 mmol/L (3.5-5.0); Total Bilirubin 0.7 mg/dL (0.2-1.0); Total Protein 7.1 g/dL (6.4-8.9)
[2016-11-26] MEDS: Mometasone/Formoter 200/5 MDI INH SCH ×2 (07:39→20:01)
[2016-11-26] MEDS: Metoprolol Tartrate TAB* 25 MG PO SCH (08:54)
[2016-11-26] MEDS: Sertraline* 100 MG TAB PO SCH (08:55)
[2016-11-26] MEDS: predniSONE TAB* 20 MG PO SCH (08:55)
[2016-11-26] MEDS: Potassium Chloride LIQUID* 20 MEQ PACKET PO SCH (08:55)
[2016-11-26] MEDS: Fluticasone NASAL SPRAY 50MCG* 16 gm SPRAY BTL BOTH NARES SCH (08:55)
[2016-11-26] MEDS: KCL 10 MEQ/50 ML IVPREMIX* 10 MEQ/50 ML BAG IV SCH ×3 (10:39→15:22)
--- NOTE | 2016-11-26 13:18 | PN ---
Subjective Date of Service: 11/26/16 Interval History: HOSPITALIST PROGRESS NOTE Patient seen and examined at bedside. Pleasantly confused lady, offers no complaints at this time. Family History: Unchanged from Admission Social History: Unchanged from Admission Past Medical History: Unchanged from Admission Objective Active Medications: Acetaminophen (Tylenol Supp*) 650 mg [place] Q4H PRN PRN Reason: FEVER/PAIN Albuterol (Ventolin 2.5 Mg/3 Ml Neb.Zoila*) 2.5 mg INH Q2H PRN PRN Reason: SOB/WHEEZING Albuterol/Ipratropium (Duoneb (Albuterol 2.5 Mg/Ipratropium 0.5 Mg)) 1 neb INH [id number] AWAKE [facility] Last Admin: 11/26/16 11:28 Dose: 1 neb Fluticasone Propionate (Flonase Nasal [place] 50mcg*) 2 spray BOTH NARES DAILY [facility] Last Admin: 11/26/16 08:55 Dose: 2 spray Azithromycin 500 mg/ Sodium (Chloride) 250 mls @ 250 mls/hr IVPB Q24H [facility] Last Admin: 11/25/16 12:27 Dose: 250 mls/hr Piperacillin Sod/Tazobactam (Sod 3.375 gm/ Sodium Chloride) 100 mls @ 25 mls/ hr IVPB Q8H [facility] Last Admin: 11/26/16 06:00 Dose: 25 mls/hr Levothyroxine Sodium (Synthroid Tab*) 150 mcg PO 0600 [facility] Last Admin: 11/26/16 06:00 Dose: 150 mcg Lorazepam (Ativan Tab(*)) 1 mg PO BID PRN PRN Reason: ANXIETY Metoprolol Tartrate (Lopressor Tab*) 12.5 mg PO DAILY [facility] Last Admin: 11/26/16 08:54 Dose: 12.5 mg Mometasone Furoate/Formoterol Fumar (Dulera 200/5 Mdi*) 2 puff INH BID [facility] Last Admin: 11/26/16 07:39 Dose: 2 puff Ondansetron HCl (Zofran Inj*) 4 mg IV Q6H PRN PRN Reason: NAUSEA Pantoprazole Sodium (Protonix Iv*) 40 mg IV Q12H [facility] Last Admin: 11/26/16 13:13 Dose: 40 mg Pharmacy Consult (Zosyn Per Pharmacy*) 1 note FOLLOW UP .ZOSYN PER PHARMACY [facility] Potassium Chloride (Klor-Con Liquid*) 40 meq PO DAILY [facility] Last Admin: 11/26/16 08:55 Dose: 40 meq Prednisone (Deltasone Tab*) 40 mg PO DAILY [facility] Last Admin: 11/26/16 08:55 Dose: 40 mg Quetiapine Fumarate (Seroquel Tab*) 50 mg PO BEDTIME PRN PRN Reason: ANXIETY Sertraline HCl (Zoloft*) 200 mg PO DAILY [facility] Last Admin: 11/26/16 08:55 Dose: 200 mg Vital Signs 11/26/16 11/26/16 11/26/16 07:48 08:00 11:36 Temperature 98.6 F Pulse Rate 94 82 Respiratory 20 20 20 Rate Blood Pressure 124/55 (mmHg) O2 Sat by Pulse 95 94 Oximetry Oxygen Devices in Use Now: Nasal Cannula Appearance: Elderly frail lady lying in bed in [facility]. Eyes: No Scleral Icterus Ears/Nose/Mouth/Throat: Mucous Membranes Moist Neck: Trachea Midline Respiratory: Symmetrical Chest Expansion and Respiratory Effort, - - BS+ bilaterally coarse with no added sounds Cardiovascular: RRR - Normal S1 and S2 Abdominal: NL Sounds; No Tenderness; No Distention Neurological: - - AAOx2 (self and place), ZENG Lines/Tubes/Other Access: Clean, Dry and Intact Peripheral IV Nutrition: Taking PO's Result Diagrams: 11/26/16 05:39 11/26/16 05:40 Assess/Plan/Problems-Billing Assessment: Mrs. Hoang is an 86yo F with PMH of prior GI bleed, HTN, HLD, Afib, diastolic CHF , moderate to severe , COPD, hypothyroidism, recurrent aspiration pneumonia, GERD, large hiatal hernia, portal HTN with esophageal varices, depression, dementia, malnutrition, recent admission for GI bleed, who presented to ED with c/o dyspnea, found to have aspiration pneumonia. - Patient Problems (1) Aspiration pneumonia Comment: - Patient has known chronic aspiration. - Continue treatment with Zosyn and azithromycin. - Speech pathology eval appreciated. (2) Anemia Comment: - Suspect her drop in H/H was dilutional due to IVF - back at baseline now. - No signs of active GI bleed at this time, but at risk. - Continue to monitor. (3) GI bleed Comment: - Likely associated with her esophageal varices - continue PPI. (4) Transaminitis Comment: - Patient has known h/o cirrhosis with portal HTN and esophageal varices. - RUQ US showed cirrhosis and cholelithiasis, but no obstruction. - Suspect secondary to infection - already trending down. (5) DVT prophylaxis Comment: - Pharmacological prophylaxis contraindicated in the setting of recent GI bleed. - SCDs. (6) DNR (do not resuscitate) Status and Disposition: Inpatient for management of aspiration pneumonia requiring >48h for stabilization.
[2016-11-26] MEDS: Azithromycin IV(*) 500 MG in NS 0.9% 250 ML* 250 ML IVPB SCH (13:22)
[2016-11-27] MEDS: Pantoprazole IV* 40 MG IV SCH (01:58)
[2016-11-27] MEDS: Albuterol/Ipratropium NEB.SOL* Albuterol 2.5 MG/Ipratropium 0.5 MG 3 ML INH SCH ×6 (03:38→23:39)
[2016-11-27] MEDS: Levothyroxine TAB* 150 MCG TAB PO SCH (05:30)
[2016-11-27] MEDS: ZOSYN 3.375 GM Q8H per EXTENDED INFUSION IVPB SCH ×4 (05:30→21:01)
[2016-11-27] MEDS ORDERED: Furosemide IV* 10 MG/ML 2 ML VIAL (20 MG) IV ONE (06:06)
[2016-11-27] MEDS: Mometasone/Formoter 200/5 MDI INH SCH ×2 (08:09→19:24)
[2016-11-27] MEDS ORDERED: Morphine INJ* 2 MG/ML 1 ML CARPUJECT IV PRN (08:42)
[2016-11-27] MEDS: Sertraline* 100 MG TAB PO SCH (09:13)
[2016-11-27] MEDS: Potassium Chloride LIQUID* 20 MEQ PACKET PO SCH (09:13)
[2016-11-27] MEDS: predniSONE TAB* 20 MG PO SCH (09:13)
[2016-11-27] MEDS: Metoprolol Tartrate TAB* 25 MG PO SCH (09:14)
[2016-11-27] MEDS: Fluticasone NASAL SPRAY 50MCG* 16 gm SPRAY BTL BOTH NARES SCH (09:14)
[2016-11-27] MEDS ORDERED: Pantoprazole IV* 40 MG IV ONE (09:17)
[2016-11-27] MEDS ORDERED: Octreotide Acetate* 50 MCG in NS 0.9% 50 ML* 50 ML IVPB ONE (10:00)
[2016-11-27 11:28] LABS: Hematocrit 21 % (35-47); Hemoglobin 6.7 g/dl (12.0-16.0); Mean Corpuscular HGB Conc 32 g/dl (31-36); Mean Corpuscular Hemoglobin 28 pg (27-31); Mean Corpuscular Volume 87 fL (80-97); Mean Platelet Volume 10 um3 (7.4-10.4); Red Cell Distribution Width 23 % (10.5-15)
[2016-11-27 11:32] LABS: Add Diff/Slide Review? Slide Review Added; Comments Flag Yes
[2016-11-27 11:39] LABS: Albumin 2.4 g/dL (3.2-5.2); BUN/Creatinine Ratio 25.6 (8-20); Calcium 7.8 mg/dL (8.6-10.3); EGFR African American 76.7 (>60); EGFR Non-African American 59.7 (>60); Potassium 4.2 mmol/L (3.5-5.0); Total Bilirubin 0.7 mg/dL (0.2-1.0); Total Protein 6.4 g/dL (6.4-8.9)
[2016-11-27] MEDS: Pantoprazole IV* 80 MG in NS 0.9% 250 ML* 250 ML IVPB SCH ×2 (12:05→22:36)
[2016-11-27] MEDS: Azithromycin IV(*) 500 MG in NS 0.9% 250 ML* 250 ML IVPB SCH (13:00)
--- NOTE | 2016-11-27 14:04 | PN ---
Subjective Date of Service: 11/27/16 Interval History: HOSPITALIST PROGRESS NOTE Patient seen and examined at bedside. She had significant worsening of her condition this AM. Was more dyspneic, with increase in her oxygen requirements, diaphoretic. Shortly after she had a large melanotic bowel movement. Transferred to ICU for Vapotherm. Family History: Unchanged from Admission Social History: Unchanged from Admission Past Medical History: Unchanged from Admission Objective Active Medications: Acetaminophen (Tylenol Supp*) 650 mg [place] Q4H PRN PRN Reason: FEVER/PAIN Albuterol (Ventolin 2.5 Mg/3 Ml Neb.Zoila*) 2.5 mg INH Q2H PRN PRN Reason: SOB/WHEEZING Last Admin: 11/27/16 05:30 Dose: 2.5 mg Albuterol/Ipratropium (Duoneb (Albuterol 2.5 Mg/Ipratropium 0.5 Mg)) 1 neb INH [id number] AWAKE [facility] Last Admin: 11/27/16 11:50 Dose: 1 neb Fluticasone Propionate (Flonase Nasal [place] 50mcg*) 2 spray BOTH NARES DAILY [facility] Last Admin: 11/27/16 09:14 Dose: 2 spray Azithromycin 500 mg/ Sodium (Chloride) 250 mls @ 250 mls/hr IVPB Q24H [facility] Last Admin: 11/26/16 13:22 Dose: 250 mls/hr Piperacillin Sod/Tazobactam (Sod 3.375 gm/ Sodium Chloride) 100 mls @ 25 mls/ hr IVPB Q8H [facility] Last Admin: 11/27/16 05:30 Dose: 25 mls/hr Octreotide Acetate 500 mcg/ (Sodium Chloride) 101 mls @ 5.05 mls/hr IVPB Q20H [facility] PRN Reason: 25 MCG/HR Last Admin: 11/27/16 11:02 Dose: 5.05 mls/hr Pantoprazole Sodium 80 mg/ (Sodium Chloride) 250 mls @ 25 mls/hr IVPB Q10H [facility] Levothyroxine Sodium (Synthroid Tab*) 150 mcg PO 0600 [facility] Last Admin: 11/27/16 05:30 Dose: 150 mcg Lorazepam (Ativan Tab(*)) 1 mg PO BID PRN PRN Reason: ANXIETY Metoprolol Tartrate (Lopressor Tab*) 12.5 mg PO DAILY [facility] Last Admin: 11/27/16 09:14 Dose: 12.5 mg Mometasone Furoate/Formoterol Fumar (Dulera 200/5 Mdi*) 2 puff INH BID [facility] Last Admin: 11/27/16 08:09 Dose: 2 puff Morphine Sulfate (Morphine Inj (Syringe)*) 1 mg IV Q6H PRN PRN Reason: Pain / Tachypnea Ondansetron HCl (Zofran Inj*) 4 mg IV Q6H PRN PRN Reason: NAUSEA Pharmacy Consult (Zosyn Per Pharmacy*) 1 note FOLLOW UP .ZOSYN PER PHARMACY [facility] Potassium Chloride (Klor-Con Liquid*) 40 meq PO DAILY [facility] Last Admin: 11/27/16 09:13 Dose: 40 meq Prednisone (Deltasone Tab*) 40 mg PO DAILY [facility] Last Admin: 11/27/16 09:13 Dose: 40 mg Quetiapine Fumarate (Seroquel Tab*) 50 mg PO BEDTIME PRN PRN Reason: ANXIETY Sertraline HCl (Zoloft*) 200 mg PO DAILY [facility] Last Admin: 11/27/16 09:13 Dose: 200 mg Vital Signs 11/27/16 11/27/16 11/27/16 09:30 11:37 11:50 Temperature 100.5 F 100.0 F Pulse Rate 88 80 Respiratory 35 18 Rate Blood Pressure 114/52 (mmHg) O2 Sat by Pulse 97 100 Oximetry Oxygen Devices in Use Now: High Flow Nasal Cannula - 10 liters Appearance: Elderly frail lady lying in bed in moderate respiratory distress. Eyes: No Scleral Icterus Ears/Nose/Mouth/Throat: Mucous Membranes Moist Neck: Trachea Midline Respiratory: Symmetrical Chest Expansion and Respiratory Effort, - - BS+ bilaterally with diffuse wheezing and rhonchi. Cardiovascular: - - Normal S1 and S2, irregularly irregular, tachycardic Abdominal: - - soft, NT, BS+ and increased Extremities: No Edema Neurological: - - AAOx2 (self and place), ZENG Lines/Tubes/Other Access: Clean, Dry and Intact Peripheral IV Nutrition: Taking PO's Result Diagrams: 11/27/16 11:00 11/27/16 11:00 Assess/Plan/Problems-Billing Assessment: Mrs. Hoang is an 86yo F with PMH of prior GI bleed, HTN, HLD, Afib, diastolic CHF , moderate to severe , COPD, hypothyroidism, recurrent aspiration pneumonia, GERD, large hiatal hernia, portal HTN with esophageal varices, depression, dementia, malnutrition, recent admission for GI bleed, who presented to ED with c/o dyspnea, found to have aspiration pneumonia. - Patient Problems (1) GI bleed Comment: - Patient now has recurrence of her UGI bleed, suspect likely variceal in nature. - Start Pantoprazole and Octreotide drip. (2) Acute blood loss anemia Comment: - Will transfuse 1 PRBC followed by furosemide as she is already showing signs of fluid overload. (3) Aspiration pneumonia Comment: - Patient has known chronic aspiration. - Continue treatment with Zosyn and azithromycin. - Speech pathology eval appreciated. - She was started on steroids on admission to decrease inflammation from aspiration pneumonitis, but we will have to d/c it now due to GI bleed. (4) Transaminitis Comment: - Patient has known h/o cirrhosis with portal HTN and esophageal varices. - RUQ US showed cirrhosis and cholelithiasis, but no obstruction. - Suspect secondary to infection - already trending down. (5) DVT prophylaxis Comment: - Pharmacological prophylaxis contraindicated in the setting of recent GI bleed. - SCDs. (6) DNR (do not resuscitate) Status and Disposition: Inpatient for management of aspiration pneumonia requiring >48h for stabilization. Daughter called and updated about change in condition. Still reluctant about Hospice, but willing to talk to them. Patient is very clear she would not want aggressive/invasive measures.
[2016-11-27] MEDS ORDERED: Furosemide IV* 10 MG/ML 2 ML VIAL (20 MG) IV SLOW PU ONE (18:00)
[2016-11-27] MEDS ORDERED: NS 0.9% 250 ML* 250 ML ONE (19:54)
[2016-11-28] MEDS: ZOSYN 3.375 GM Q8H per EXTENDED INFUSION IVPB SCH ×8 (01:05→21:44)
[2016-11-28] MEDS: Albuterol/Ipratropium NEB.SOL* Albuterol 2.5 MG/Ipratropium 0.5 MG 3 ML INH SCH ×6 (03:38→22:59)
[2016-11-28 06:34] LABS: Hematocrit 24 % (35-47); Hemoglobin 7.9 g/dl (12.0-16.0)
[2016-11-28 06:46] LABS: Comments Flag Yes
[2016-11-28] MEDS: Levothyroxine TAB* 150 MCG TAB PO SCH (06:56)
[2016-11-28] MEDS: Mometasone/Formoter 200/5 MDI INH SCH ×2 (08:05→19:57)
--- NOTE | 2016-11-28 08:06 | RAD ---
HISTORY: Pneumonia COMPARISONS: November 24, 2016 VIEWS: 1: frontal portable view of the chest at 6:22 AM FINDINGS: LINES AND TUBES: None. CARDIOMEDIASTINAL SILHOUETTE: The cardiac silhouette is enlarged. The cardiomediastinal silhouette is otherwise normal for portable technique. PLEURA: The costophrenic angles are sharp. No pleural abnormalities are noted. LUNG PARENCHYMA: There has been further progressive alveolar opacification of the left lower lung field. There is a diffuse reticular pattern with indistinct pulmonary vessels. There is hyperinflation. ABDOMEN: The upper abdomen is clear. There is no subphrenic gas. BONES AND SOFT TISSUES: No bone or soft tissue abnormalities are noted. IMPRESSION: 1. COPD. 2. CARDIOMEGALY. 3. MILD PULMONARY INTERSTITIAL EDEMA. 4. PROGRESSIVE LEFT LOWER LOBE CONSOLIDATION.
[2016-11-28] MEDS: Metoprolol Tartrate TAB* 25 MG PO SCH (08:52)
[2016-11-28] MEDS: Potassium Chloride LIQUID* 20 MEQ PACKET PO SCH (08:52)
[2016-11-28] MEDS: Sertraline* 100 MG TAB PO SCH (08:52)
[2016-11-28] MEDS: Pantoprazole IV* 80 MG in NS 0.9% 250 ML* 250 ML IVPB SCH ×2 (08:52→17:44)
[2016-11-28] MEDS: Morphine INJ* 4 MG/ML 1 ML CARPUJECT IV PRN (10:11)
[2016-11-28] MEDS: Azithromycin IV(*) 500 MG in NS 0.9% 250 ML* 250 ML IVPB SCH (11:59)
[2016-11-28] MEDS ORDERED: Influenza VAC *QUAD* 2017-18* 0.5 ML SYRINGE IM ONE (12:00)
--- NOTE | 2016-11-28 12:15 | PN ---
Subjective Date of Service: 11/28/16 Interval History: HOSPITALIST PROGRESS NOTE Patient seen and examined at bedside. She's lethargic today, but arousable to voice. C/o dyspnea, although she's more comfortable than yesterday. Denies pain. As per RN, she had 2 more episodes of melena overnight. Family History: Unchanged from Admission Social History: Unchanged from Admission Past Medical History: Unchanged from Admission Objective Active Medications: Acetaminophen (Tylenol Supp*) 650 mg NV Q4H PRN PRN Reason: FEVER/PAIN Albuterol (Ventolin 2.5 Mg/3 Ml Neb.Zoila*) 2.5 mg INH Q2H PRN PRN Reason: SOB/WHEEZING Last Admin: 11/27/16 05:30 Dose: 2.5 mg Albuterol/Ipratropium (Duoneb (Albuterol 2.5 Mg/Ipratropium 0.5 Mg)) 1 neb INH [id number] AWAKE [facility] Last Admin: 11/28/16 11:32 Dose: 1 neb Azithromycin 500 mg/ Sodium (Chloride) 250 mls @ 250 mls/hr IVPB Q24H [facility] Last Admin: 11/28/16 11:59 Dose: 250 mls/hr Piperacillin Sod/Tazobactam (Sod 3.375 gm/ Sodium Chloride) 100 mls @ 25 mls/ hr IVPB Q8H [facility] Last Admin: 11/28/16 06:56 Dose: 25 mls/hr Octreotide Acetate 500 mcg/ (Sodium Chloride) 101 mls @ 5.05 mls/hr IVPB Q20H [facility] PRN Reason: 25 MCG/HR Last Admin: 11/28/16 07:55 Dose: 5.05 mls/hr Pantoprazole Sodium 80 mg/ (Sodium Chloride) 250 mls @ 25 mls/hr IVPB Q10H [facility] Last Admin: 11/28/16 08:52 Dose: 25 mls/hr Levothyroxine Sodium (Synthroid Tab*) 150 mcg PO 0600 [facility] Last Admin: 11/28/16 06:56 Dose: 150 mcg Lorazepam (Ativan Tab(*)) 1 mg PO BID PRN PRN Reason: ANXIETY Metoprolol Tartrate (Lopressor Tab*) 12.5 mg PO DAILY [facility] Last Admin: 11/28/16 08:52 Dose: 12.5 mg Mometasone Furoate/Formoterol Fumar (Dulera 200/5 Mdi*) 2 puff INH BID [facility] Last Admin: 11/28/16 08:05 Dose: 2 puff Morphine Sulfate (Morphine Inj (Syringe)*) 1 mg IV Q6H PRN PRN Reason: Pain / Tachypnea Last Admin: 11/28/16 10:11 Dose: 1 mg Ondansetron HCl (Zofran Inj*) 4 mg IV Q6H PRN PRN Reason: NAUSEA Pharmacy Consult (Zosyn Per Pharmacy*) 1 note FOLLOW UP .ZOSYN PER PHARMACY [facility] Potassium Chloride (Klor-Con Liquid*) 40 meq PO DAILY [facility] Last Admin: 11/28/16 08:52 Dose: 40 meq Quetiapine Fumarate (Seroquel Tab*) 50 mg PO BEDTIME PRN PRN Reason: ANXIETY Sertraline HCl (Zoloft*) 200 mg PO DAILY [facility] Last Admin: 11/28/16 08:52 Dose: 200 mg Vital Signs 11/28/16 11/28/16 11/28/16 07:30 08:00 08:01 Temperature 99.2 F Pulse Rate 66 64 67 Respiratory 22 27 25 Rate Blood Pressure 146/67 (mmHg) O2 Sat by Pulse 93 93 93 Oximetry Oxygen Devices in Use Now: High Flow Nasal Cannula - Vapotherm 30 liters FiO2 60 % Appearance: Elderly frail lady lying in bed in NAD. Eyes: No Scleral Icterus Ears/Nose/Mouth/Throat: Mucous Membranes Moist Neck: Trachea Midline Respiratory: Symmetrical Chest Expansion and Respiratory Effort, - - BS+ bilaterally with diffuse wheezing, rhonchi, and bibasilar crackles Cardiovascular: - - Normal S1 and S2, irregularly irregular Abdominal: - - Soft, mild distention, NT, BS+ Neurological: - - AAOx2 (self and place) Lines/Tubes/Other Access: Clean, Dry and Intact Peripheral IV Nutrition: Taking PO's Result Diagrams: 11/28/16 06:25 11/27/16 11:00 Assess/Plan/Problems-Billing Assessment: Mrs. Hoang is an 86yo F with PMH of prior GI bleed, HTN, HLD, Afib, diastolic CHF , moderate to severe , COPD, hypothyroidism, recurrent aspiration pneumonia, GERD, large hiatal hernia, portal HTN with esophageal varices, depression, dementia, malnutrition, recent admission for GI bleed, who presented to ED with c/o dyspnea, found to have aspiration pneumonia. - Patient Problems (1) GI bleed Comment: - Patient now has recurrence of her UGI bleed, suspect likely variceal in nature. - Continue Pantoprazole and Octreotide drip. (2) Acute blood loss anemia Comment: - Hb up to 7.9. I'm concerned with possibility of fluid overload. Will not transfuse today. (3) Aspiration pneumonia Comment: - Patient has known chronic aspiration. - Continue treatment with Zosyn and azithromycin. - Speech pathology eval appreciated. - She was started on steroids on admission to decrease inflammation from aspiration pneumonitis, but it was d/c due to GI bleed. (4) Transaminitis Comment: - Patient has known h/o cirrhosis with portal HTN and esophageal varices. - RUQ US showed cirrhosis and cholelithiasis, but no obstruction. - Suspect secondary to infection - already trending down. (5) DVT prophylaxis Comment: - Pharmacological prophylaxis contraindicated in the setting of recent GI bleed. - SCDs. (6) DNR (do not resuscitate) (7) End of life care Comment: - Daughter was agreeable with Palliative care evaluation. Unclear to me if patient will be stable enough to go home with Hospice. She may require inpatient Hospice if she continues to decline. Status and Disposition: Inpatient for management of aspiration pneumonia requiring >48h for stabilization.
[2016-11-28] MEDS: Morphine ORAL CONCENTRATE* 5 MG/0.25 ML ORAL.SYRIN SL PRN ×2 (14:42→17:55)
--- NOTE | 2016-11-28 15:45 | CONS ---
CC: Padmaja Parson MD; Carol Conrad MD* PALLIATIVE CARE CONSULTATION REPORT: DATE OF CONSULT: 11/28/16 PRIMARY CARE PHYSICIAN: Padmaja Parson MD. REFERRING PHYSICIAN: Carol Conrad MD. HOSPITAL COURSE: This is an 86-year-old female with a past medical history of esophageal varices, portal hypertension, and GI bleed with a recent admission 2 weeks ago who presented again to the emergency room on the with cough and shortness of breath. On admission, the patient was diagnosed with aspiration pneumonia and started on broad spectrum antibiotics. The patient was noted to have a drop in her H and H and she was given blood, transfused 2 units. The patient clinically was doing well and on the morning of the Dr. Conrad noticed a significant worsening in her condition with increased work of breathing, dyspnea, and hypoxia, and she subsequently developed melanic stools. She was transferred to the ICU, placed on Vapotherm and transfused blood as mentioned. She still remains on Vapotherm with hypoxia and increased work of breathing. The patient was just discharged on 11/14/16 for an upper GI bleed and discussion at that time was consideration for hospice. The patient was on hospice 2 years ago for her dysphagia and weight loss and at the same time her son had and the thought that a lot of her symptoms were contributed to grief in the loss of her son and she had done well and was discharged off of hospice for the past year. But unfortunately she has continued to decline with continued weight loss with continued dysphagia and now again with another episode of aspiration pneumonia. I spoke with the daughter at length regarding goals of care and the daughter is concerned about reenrolling her on hospice as her primary, Dr. Parson was reluctant to put her on hospice 2 years ago and the patient was doing well off of hospice and she is concerned that she has not yet ready to be on hospice. I spoke of my concern with her respiratory failure in addition to her ongoing GI bleeding that I am concerned that she will survive to discharge and that I do feel that hospice at home is appropriate for her and the daughter did quit her job 2 years ago and has been caring for her 24x7 with the help of aide services. In regards to the patient, her baseline is that she has moderate dementia. She is able to have meaningful interactions. She is wheelchair bound, but she has continued to have decline in p.o. intake and clinical deterioration. On my encounter with the patient, she denies any pain. She does state she has increased work of breathing at times. She knows that she is in the hospital. She has no chest pain. No other discomfort. Otherwise, remaining review of systems is negative. PAST MEDICAL HISTORY: 1. History of GI bleed. 2. History of portal hypertension with esophageal varices. 3. Hypertension. 4. Hyperlipidemia. 5. History of paroxysmal atrial fibrillation. 6. CHF. 7. Severe aortic stenosis. 8. COPD. 9. Hypothyroidism. 10. History of recurrent aspiration pneumonia. 11. Moderate dysphagia. 12. GERD. 13. Hiatal hernia. 14. Depression. 15. Moderate dementia. 16. Malnutrition. 17. History of chronic respiratory failure. INPATIENT MEDICATIONS: 1. Tylenol 650 mg every 4 hours as needed. 2. Albuterol q. 2 hours as needed. 3. DuoNeb q. 4 hours as needed. 4. Lorazepam 1 mg p.o. b.i.d. as needed. 5. Levothyroxine 150 mcg daily. 6. Metoprolol 12.5 mg p.o. daily. 7. Mometasone/formoterol 2 puffs inhaled b.i.d. 8. Morphine 1 mg IV q. 6 hours as needed. 9. Octreotide 500 mcg. 10. Zofran 4 mg IV q. 6 hours as needed. 11. Pantoprazole drip. 12. Zosyn 3.375 g q. 8 hours. 13. Potassium chloride 40 mEq daily. 14. Seroquel 50 mg at bedtime. 15. Zoloft 200 mg daily. 16. Azithromycin 500 mg daily. ALLERGIES: DIPHTHERIA TOXOID, PERTUSSIS, TETANUS, CODEINE. SOCIAL HISTORY: The patient lives at home with her daughter, Adina, who is her healthcare proxy. No history of smoking, alcohol, or illicit drug use. The patient is dependent on her all ADLs and she is wheelchair bound. Code status is a DNR/DNI. FAMILY HISTORY: Mother has a history of CVA. REVIEW OF SYSTEMS: A 14-point review of systems reviewed. Pertinent positives and negatives as mentioned in the HPI, otherwise negative. PHYSICAL EXAMINATION: Vitals: Temp 99.2, pulse rate 67, respiratory rate 30, oxygen saturation is 91% on 50% of 30 L of Vapotherm, blood pressure 131/61. General: Frail, elderly female, in mild to moderate respiratory distress. HEENT: Head normocephalic. Pupils are equal and reactive, anicteric. Oropharynx, mucous membranes moist. Neck: Supple. No lymphadenopathy. No nuchal rigidity. Cardiac: Regular rate and rhythm with a harsh systolic murmur , most prominent at the right sternal base. Respiratory: Rhonchorous breath sounds, bilateral. Poor aeration. Increased work of breathing. Abdomen: Soft , nontender, nondistended. Extremities: No clubbing, cyanosis, or edema. +1 DPs. Neurologic: The patient is alert and oriented x3. No gross focal neurologic deficits. LABORATORY DATA: White count 11, hemoglobin 7.9/24, platelets 94. INR is 1.32. Sodium 140, potassium 4.2, chloride 112, bicarb 23, BUN 23, creatinine 0.9. AST 60, ALT is 33, alk phos 173. Albumin is 2.4. RADIOGRAPHIC DATA: Chest x-ray: COPD, cardiomegaly, mild pulmonary interstitial edema, progressive left lower lobe consolidation. ASSESSMENT: This is an 86-year-old female with past medical history of portal hypertension, esophageal varices with recurrent GI bleed and recurrent aspiration pneumonia who is now in the ICU with respiratory failure with an ongoing GI bleed. The patient is eligible for hospice with a principal diagnosis of hypoxic respiratory failure secondary to aspiration pneumonia and dysphagia and a secondary diagnosis of upper GI bleed secondary to esophageal varices and portal hypertension. The daughter is hesitant to enroll the patient in hospice because she did well 2 years ago with discharge off of hospice at that time. She would like her primary care's input regarding referral to hospice and I have placed a call to Dr. Parson and waiting to hear back from her regarding her recommendation for the patient to go on hospice. In the meantime, I expressed my concern regarding the fact that the patient may not survive to discharge with her tenuous respiratory status and ongoing GI bleeding. We discussed adding oral morphine to the regimen as needed every hour for work of breathing and the patient's daughter stated that, that has worked for her in the past. I will follow up with the daughter and the patient once I hear from Dr. Parson. In the meantime, we will send out a referral to hospice if the patient and the daughter are willing to be discharged to home with hospice in the next coming days. Also of note, her MOLST form is a DNR/DNI and this was confirmed with the daughter. Thank you for this consultation. I will follow along with you. PATIENT TIME: Greater than 90 minutes was spent on consultation, more than half the time spent in direct patient contact. [id number]/CPS #: [id number] EMILIA
[2016-11-29] MEDS: Pantoprazole IV* 80 MG in NS 0.9% 250 ML* 250 ML IVPB SCH ×3 (03:32→23:37)
[2016-11-29] MEDS: Albuterol/Ipratropium NEB.SOL* Albuterol 2.5 MG/Ipratropium 0.5 MG 3 ML INH SCH ×6 (03:39→22:47)
[2016-11-29] MEDS: Levothyroxine TAB* 150 MCG TAB PO SCH (05:40)
[2016-11-29] MEDS: ZOSYN 3.375 GM Q8H per EXTENDED INFUSION IVPB SCH ×6 (05:40→23:17)
--- NOTE | 2016-11-29 07:39 | PN ---
Subjective Date of Service: 11/29/16 Interval History: Patient has had no reported bloody stool or melena overnight. She remains in ICU w/ UGI bleed, pneumonia, hypoxic respiratory failure. Had Hospice consult yesterday, family waiting to hear from PCP on her opinion. Patient can answer questions, but difficult to understand very quiet speech over noise of vapotherm. Family History: Unchanged from Admission Social History: Unchanged from Admission Past Medical History: Unchanged from Admission Objective Active Medications: Acetaminophen (Tylenol Supp*) 650 mg OR Q4H PRN PRN Reason: FEVER/PAIN Albuterol (Ventolin 2.5 Mg/3 Ml Neb.Zoila*) 2.5 mg INH Q2H PRN PRN Reason: SOB/WHEEZING Last Admin: 11/27/16 05:30 Dose: 2.5 mg Albuterol/Ipratropium (Duoneb (Albuterol 2.5 Mg/Ipratropium 0.5 Mg)) 1 neb INH [id number] AWAKE [facility] Last Admin: 11/29/16 03:39 Dose: Not Given Piperacillin Sod/Tazobactam (Sod 3.375 gm/ Sodium Chloride) 100 mls @ 25 mls/ hr IVPB Q8H [facility] Last Admin: 11/29/16 05:40 Dose: 25 mls/hr Octreotide Acetate 500 mcg/ (Sodium Chloride) 101 mls @ 5.05 mls/hr IVPB Q20H [facility] PRN Reason: 25 MCG/HR Last Admin: 11/29/16 03:31 Dose: 5.05 mls/hr Pantoprazole Sodium 80 mg/ (Sodium Chloride) 250 mls @ 25 mls/hr IVPB Q10H [facility] Last Admin: 11/29/16 03:32 Dose: 25 mls/hr Levothyroxine Sodium (Synthroid Tab*) 150 mcg PO 0600 [facility] Last Admin: 11/29/16 05:40 Dose: 150 mcg Lorazepam (Ativan Tab(*)) 1 mg PO BID PRN PRN Reason: ANXIETY Metoprolol Tartrate (Lopressor Tab*) 12.5 mg PO DAILY [facility] Last Admin: 11/28/16 08:52 Dose: 12.5 mg Mometasone Furoate/Formoterol Fumar (Dulera 200/5 Mdi*) 2 puff INH BID [facility] Last Admin: 11/28/16 19:57 Dose: 2 puff Morphine Sulfate (Morphine Inj (Syringe)*) 1 mg IV Q6H PRN PRN Reason: Pain / Tachypnea Last Admin: 11/28/16 10:11 Dose: 1 mg Morphine Sulfate (Morphine Oral Concentrate*) 2.5 mg SL Q1HR PRN PRN Reason: DYSPNEA Last Admin: 11/28/16 17:55 Dose: 2.5 mg Ondansetron HCl (Zofran Inj*) 4 mg IV Q6H PRN PRN Reason: NAUSEA Pharmacy Consult (Zosyn Per Pharmacy*) 1 note FOLLOW UP .ZOSYN PER PHARMACY [facility] Potassium Chloride (Klor-Con Liquid*) 40 meq PO DAILY [facility] Last Admin: 11/28/16 08:52 Dose: 40 meq Quetiapine Fumarate (Seroquel Tab*) 50 mg PO BEDTIME PRN PRN Reason: ANXIETY Sertraline HCl (Zoloft*) 200 mg PO DAILY [facility] Last Admin: 11/28/16 08:52 Dose: 200 mg Vital Signs 11/28/16 11/28/16 11/28/16 08:00 08:01 08:09 Temperature 37.3 C Pulse Rate 64 67 69 Respiratory 27 25 31 Rate Blood Pressure 146/67 (mmHg) O2 Sat by Pulse 93 93 96 Oximetry 11/29/16 11/29/16 11/29/16 05:01 05:30 06:00 Temperature Pulse Rate 58 66 66 Respiratory 21 22 16 Rate Blood Pressure (mmHg) O2 Sat by Pulse 94 82 90 Oximetry 11/29/16 06:06 Temperature Pulse Rate 67 Respiratory 20 Rate Blood Pressure 107/45 (mmHg) O2 Sat by Pulse 84 Oximetry Oxygen Devices in Use Now: High Flow Nasal Cannula - Vapotherm 30 liters FiO2 60 % Appearance: elderly, fatigued, mild resp distress Eyes: No Scleral Icterus Ears/Nose/Mouth/Throat: Clear Oropharnyx Neck: Trachea Midline Respiratory: - - rales at bases bilat, wheezing throughout Cardiovascular: RRR, - - 2/6 high-pitched systolic murmur Extremities: No Edema Neurological: - - alert, cooperative Lines/Tubes/Other Access: Clean, Dry and Intact Peripheral IV Result Diagrams: 11/29/16 08:10 11/27/16 11:00 Additional Lab and Data: Lab Results Microbiology and Other Data: Microbiology EKG Data: PVCs occasionally on monitor Assess/Plan/Problems-Billing Assessment: Mrs. Hoang is an 86yo F with upper GI bleed due to varices, and aspiration pneumonia, here with continued anemia and hypoxic respiratory failure. - Patient Problems (1) Acute blood loss anemia Current Visit: Yes Status: Acute Priority: High Code(s): D62 - ACUTE POSTHEMORRHAGIC ANEMIA SNOMED Code(s): 749515273 Comment: -Will draw CBC this morning, consider further transfusions. -No need for EGG/further investigations, this is a management issue, not diagnostic (2) Aspiration pneumonia Current Visit: Yes Status: Acute Priority: Medium Code(s): J69.0 - PNEUMONITIS DUE TO INHALATION OF FOOD AND VOMIT SNOMED Code(s): 444537441 Comment: -know to have chronic aspiration, may have anaerobes, gram (+) organisms -responding to IV zosyn and azithromycin (3) Acute respiratory failure with hypoxia Current Visit: No Status: Acute Priority: High Code(s): J96.01 - ACUTE RESPIRATORY FAILURE WITH HYPOXIA SNOMED Code(s): 44704722 Comment: -Responding to antibiotic therapy and Vapotherm. -Will attempt to wean O2 today (4) DNR (do not resuscitate) Current Visit: Yes Status: Chronic Priority: Medium Comment: Hospice consult appreciated, will discuss with family later in day when they arrive. (5) Thrombocytopenia Current Visit: No Status: Acute Code(s): D69.6 - THROMBOCYTOPENIA, UNSPECIFIED SNOMED Code(s): 226807027 Comment: - PLT worsening, may be due to consumption w/ acute illness, and recent RBC transfusions - octreotide can cause low platelets, will discuss w/ daughter Status and Disposition: Inpatient for management of aspiration pneumonia requiring >48h for stabilization.
[2016-11-29 08:22] LABS: Hematocrit 24 % (35-47); Hemoglobin 7.7 g/dl (12.0-16.0); Mean Corpuscular HGB Conc 33 g/dl (31-36); Mean Corpuscular Hemoglobin 28 pg (27-31); Mean Corpuscular Volume 87 fL (80-97); Mean Platelet Volume 9 um3 (7.4-10.4); Red Blood Count 2.71 10^6/ul (4.0-5.4); Red Cell Distribution Width 20 % (10.5-15); White Blood Count 7.2 10^3/ul (3.5-10.8)
[2016-11-29 08:25] LABS: Comments Flag Yes
[2016-11-29] MEDS: Mometasone/Formoter 200/5 MDI INH SCH ×2 (08:35→19:40)
[2016-11-29 08:39] LABS: Albumin 2.3 g/dL (3.2-5.2); BUN/Creatinine Ratio 23.8 (8-20); Calcium 7.7 mg/dL (8.6-10.3); EGFR African American 87.9 (>60); EGFR Non-African American 68.3 (>60); Globulin 3.7 g/dL (2-4); Potassium 3.8 mmol/L (3.5-5.0); Total Bilirubin 0.9 mg/dL (0.2-1.0)
[2016-11-29] MEDS: Metoprolol Tartrate TAB* 25 MG PO SCH (09:27)
[2016-11-29] MEDS: Sertraline* 100 MG TAB PO SCH (09:28)
[2016-11-29] MEDS: Potassium Chloride LIQUID* 20 MEQ PACKET PO SCH (09:28)
[2016-11-29] MEDS ORDERED: Furosemide IV* 10 MG/ML 2 ML VIAL (20 MG) IV ONE (15:27)
[2016-11-30 00:05] LABS: BUN/Creatinine Ratio 21.4 (8-20); Calcium 8.1 mg/dL (8.6-10.3); EGFR African American 83.1 (>60); EGFR Non-African American 64.6 (>60); Magnesium 1.7 mg/dL (1.9-2.7); Potassium 3.2 mmol/L (3.5-5.0)
[2016-11-30] MEDS ORDERED: Magnesium Sulfate 2 GM IV* 2 GM/50 ML BAG IVPB ONE (00:14)
[2016-11-30] MEDS ORDERED: Potassium Chlor TAB* 20 MEQ TAB.ER PO ONE (00:14)
[2016-11-30] MEDS ORDERED: Potassium Chloride LIQUID* 20 MEQ PACKET PO ONE (00:19)
[2016-11-30] MEDS: Albuterol/Ipratropium NEB.SOL* Albuterol 2.5 MG/Ipratropium 0.5 MG 3 ML INH SCH ×5 (03:01→19:34)
[2016-11-30] MEDS: Levothyroxine TAB* 150 MCG TAB PO SCH (05:52)
[2016-11-30] MEDS: ZOSYN 3.375 GM Q8H per EXTENDED INFUSION IVPB SCH ×6 (05:52→22:12)
[2016-11-30 06:35] LABS: Hematocrit 24 % (35-47); Hemoglobin 7.7 g/dl (12.0-16.0); Mean Corpuscular HGB Conc 33 g/dl (31-36); Mean Corpuscular Hemoglobin 29 pg (27-31); Mean Corpuscular Volume 88 fL (80-97); Mean Platelet Volume 10 um3 (7.4-10.4); Red Blood Count 2.69 10^6/ul (4.0-5.4); Red Cell Distribution Width 20 % (10.5-15); White Blood Count 8.4 10^3/ul (3.5-10.8)
[2016-11-30 06:37] LABS: Comments Flag Yes
[2016-11-30 06:49] LABS: Calcium 7.8 mg/dL (8.6-10.3); EGFR African American 81.9 (>60); EGFR Non-African American 63.7 (>60); Potassium 3.4 mmol/L (3.5-5.0)
[2016-11-30] MEDS: Mometasone/Formoter 200/5 MDI INH SCH ×2 (07:31→19:40)
[2016-11-30] MEDS: Morphine INJ* 4 MG/ML 1 ML CARPUJECT IV PRN (07:56)
[2016-11-30] MEDS ORDERED: D5W 1/2 NS 40 Meq KCL 1000 ML* 1,000 ML IV SCH (08:00)
--- NOTE | 2016-11-30 08:27 | PN ---
Subjective Date of Service: 11/30/16 Interval History: Patient had difficulty w/ dyspnea overnight. Last evening breathing improved w/ IV lasix. Overnight had nebs. Has been weaned from Vapotherm to Salter canula. She is thirsty this morning, has been drinking thickened liquids, not tolerating foods. No melena Short runs ?VT reported overnight. Family History: Unchanged from Admission Social History: Unchanged from Admission Past Medical History: Unchanged from Admission Objective Active Medications: Acetaminophen (Tylenol Supp*) 650 mg KS Q4H PRN PRN Reason: FEVER/PAIN Albuterol (Ventolin 2.5 Mg/3 Ml Neb.Zoila*) 2.5 mg INH Q2H PRN PRN Reason: SOB/WHEEZING Last Admin: 11/27/16 05:30 Dose: 2.5 mg Albuterol/Ipratropium (Duoneb (Albuterol 2.5 Mg/Ipratropium 0.5 Mg)) 1 neb INH [id number] AWAKE [facility] Last Admin: 11/30/16 07:31 Dose: 1 neb Piperacillin Sod/Tazobactam (Sod 3.375 gm/ Sodium Chloride) 100 mls @ 25 mls/ hr IVPB Q8H [facility] Last Admin: 11/30/16 05:52 Dose: 25 mls/hr Pantoprazole Sodium 80 mg/ (Sodium Chloride) 250 mls @ 25 mls/hr IVPB Q10H [facility] Last Admin: 11/29/16 23:37 Dose: 25 mls/hr Levothyroxine Sodium (Synthroid Tab*) 150 mcg PO 0600 [facility] Last Admin: 11/30/16 05:52 Dose: 150 mcg Lorazepam (Ativan Tab(*)) 1 mg PO BID PRN PRN Reason: ANXIETY Metoprolol Tartrate (Lopressor Tab*) 12.5 mg PO DAILY [facility] Last Admin: 11/29/16 09:27 Dose: Not Given Mometasone Furoate/Formoterol Fumar (Dulera 200/5 Mdi*) 2 puff INH BID [facility] Last Admin: 11/30/16 07:31 Dose: 2 puff Morphine Sulfate (Morphine Inj (Syringe)*) 1 mg IV Q6H PRN PRN Reason: Pain / Tachypnea Last Admin: 11/30/16 07:56 Dose: 1 mg Morphine Sulfate (Morphine Oral Concentrate*) 2.5 mg SL Q1HR PRN PRN Reason: DYSPNEA Last Admin: 11/28/16 17:55 Dose: 2.5 mg Ondansetron HCl (Zofran Inj*) 4 mg IV Q6H PRN PRN Reason: NAUSEA Pharmacy Consult (Zosyn Per Pharmacy*) 1 note FOLLOW UP .ZOSYN PER PHARMACY [facility] Potassium Chloride (Klor-Con Liquid*) 20 meq PO Q8H [facility] Quetiapine Fumarate (Seroquel Tab*) 50 mg PO BEDTIME PRN PRN Reason: ANXIETY Sertraline HCl (Zoloft*) 200 mg PO DAILY [facility] Last Admin: 11/29/16 09:28 Dose: 200 mg Vital Signs 11/29/16 11/29/16 11/29/16 08:30 08:37 08:38 Temperature Pulse Rate 56 58 Respiratory 21 21 Rate Blood Pressure (mmHg) O2 Sat by Pulse 97 95 97 Oximetry 11/29/16 11/29/16 11/29/16 09:00 09:01 09:30 Temperature Pulse Rate 59 60 60 Respiratory 19 21 22 Rate Blood Pressure 121/50 (mmHg) O2 Sat by Pulse 94 94 93 Oximetry 11/29/16 11/29/16 11/29/16 10:00 10:30 11:00 Temperature Pulse Rate 63 60 Respiratory 21 24 21 Rate Blood Pressure 127/60 106/48 (mmHg) O2 Sat by Pulse 96 95 Oximetry 11/29/16 11/29/16 11/29/16 11:01 11:30 12:00 Temperature 36.9 C Pulse Rate 60 58 67 Respiratory 25 21 25 Rate Blood Pressure 121/46 (mmHg) O2 Sat by Pulse 95 95 89 Oximetry 11/29/16 11/29/16 11/29/16 12:01 12:30 13:00 Temperature Pulse Rate 67 60 64 Respiratory 21 23 23 Rate Blood Pressure 117/52 (mmHg) O2 Sat by Pulse 89 92 96 Oximetry 11/29/16 11/29/16 11/29/16 13:01 13:30 14:00 Temperature Pulse Rate 63 62 66 Respiratory 23 28 29 Rate Blood Pressure 126/52 (mmHg) O2 Sat by Pulse 96 93 91 Oximetry 11/29/16 11/29/16 11/29/16 14:01 14:30 15:00 Temperature Pulse Rate 64 62 71 Respiratory 23 26 39 Rate Blood Pressure (mmHg) O2 Sat by Pulse 87 88 83 Oximetry 11/29/16 11/29/16 11/29/16 15:01 15:09 15:30 Temperature Pulse Rate 67 63 71 Respiratory 27 26 33 Rate Blood Pressure 121/54 (mmHg) O2 Sat by Pulse 81 92 91 Oximetry 11/29/16 11/29/16 11/29/16 16:00 16:01 16:30 Temperature 36.9 C Pulse Rate 75 75 74 Respiratory 27 29 29 Rate Blood Pressure 131/60 (mmHg) O2 Sat by Pulse 94 95 97 Oximetry 11/29/16 11/29/16 11/29/16 17:00 17:01 17:30 Temperature Pulse Rate 73 73 72 Respiratory 22 27 25 Rate Blood Pressure 115/57 (mmHg) O2 Sat by Pulse 94 93 96 Oximetry 11/29/16 11/29/16 11/29/16 17:41 18:00 18:01 Temperature Pulse Rate 69 68 Respiratory 30 30 Rate Blood Pressure 129/49 (mmHg) O2 Sat by Pulse 97 93 93 Oximetry 11/29/16 11/29/16 11/29/16 18:30 19:00 19:01 Temperature Pulse Rate 74 77 Respiratory 30 31 30 Rate Blood Pressure 128/66 (mmHg) O2 Sat by Pulse 92 84 Oximetry 11/29/16 11/29/16 11/29/16 19:20 19:30 19:41 Temperature 37.0 C Pulse Rate 105 70 Respiratory 31 25 Rate Blood Pressure (mmHg) O2 Sat by Pulse 89 95 Oximetry 11/29/16 11/29/16 11/29/16 20:00 20:01 20:30 Temperature Pulse Rate 76 76 97 Respiratory 32 26 28 Rate Blood Pressure 120/54 (mmHg) O2 Sat by Pulse 91 90 90 Oximetry 11/29/16 11/29/16 11/29/16 21:00 21:30 22:00 Temperature Pulse Rate 78 77 79 Respiratory 29 31 23 Rate Blood Pressure 110/72 92/74 (mmHg) O2 Sat by Pulse 90 93 94 Oximetry 11/29/16 11/29/16 11/29/16 22:01 22:30 22:52 Temperature Pulse Rate 76 73 76 Respiratory 27 26 18 Rate Blood Pressure (mmHg) O2 Sat by Pulse 93 88 95 Oximetry 11/29/16 11/29/16 11/29/16 23:00 23:01 23:14 Temperature Pulse Rate 76 76 Respiratory 29 26 28 Rate Blood Pressure 93/43 (mmHg) O2 Sat by Pulse 89 89 Oximetry 11/29/16 11/29/16 11/30/16 23:30 23:41 00:00 Temperature 37.0 C Pulse Rate 75 78 Respiratory 28 30 Rate Blood Pressure 106/49 (mmHg) O2 Sat by Pulse 91 90 Oximetry 11/30/16 11/30/16 11/30/16 00:01 00:30 01:00 Temperature Pulse Rate 81 75 72 Respiratory 29 31 28 Rate Blood Pressure 109/47 (mmHg) O2 Sat by Pulse 90 90 93 Oximetry 11/30/16 11/30/16 11/30/16 01:01 01:30 02:00 Temperature Pulse Rate 72 72 71 Respiratory 28 29 30 Rate Blood Pressure 111/47 (mmHg) O2 Sat by Pulse 92 88 90 Oximetry 11/30/16 11/30/16 11/30/16 02:01 02:30 03:00 Temperature Pulse Rate 72 69 67 Respiratory 30 28 28 Rate Blood Pressure 107/47 (mmHg) O2 Sat by Pulse 91 92 93 Oximetry 11/30/16 11/30/16 11/30/16 03:01 03:30 03:51 Temperature 37.2 C Pulse Rate 68 70 Respiratory 27 29 Rate Blood Pressure (mmHg) O2 Sat by Pulse 92 92 Oximetry 11/30/16 11/30/16 11/30/16 04:00 04:01 04:30 Temperature Pulse Rate 66 71 Respiratory 30 28 29 Rate Blood Pressure 102/46 (mmHg) O2 Sat by Pulse 79 88 Oximetry 11/30/16 11/30/16 11/30/16 05:00 05:01 05:30 Temperature Pulse Rate 74 70 71 Respiratory 30 27 26 Rate Blood Pressure 117/42 (mmHg) O2 Sat by Pulse 88 90 93 Oximetry 11/30/16 11/30/16 11/30/16 06:00 06:01 06:30 Temperature Pulse Rate 67 66 70 Respiratory 29 32 25 Rate Blood Pressure 119/55 (mmHg) O2 Sat by Pulse 89 81 91 Oximetry 11/30/16 11/30/16 11/30/16 07:37 07:44 07:56 Temperature 36.6 C Pulse Rate 62 Respiratory 26 32 Rate Blood Pressure (mmHg) O2 Sat by Pulse 92 Oximetry Oxygen Devices in Use Now: High Flow Nasal Cannula - Vapotherm 30 liters FiO2 60 % Appearance: no resp distress, conversant Eyes: No Scleral Icterus Ears/Nose/Mouth/Throat: - - edentuless Neck: Trachea Midline Respiratory: - - wheezes throughout, rales LLL Cardiovascular: RRR, - - 3/6 systolic murmuyr Abdominal: NL Sounds; No Tenderness; No Distention, No Hepatosplenomegaly Lymphatic: No Cervical Adenopathy Extremities: No Edema Lines/Tubes/Other Access: Clean, Dry and Intact Peripheral IV Result Diagrams: 11/30/16 06:10 11/30/16 06:10 EKG Data: PVCs occasionally on monitor Assess/Plan/Problems-Billing Assessment: Mrs. Hoang is an 86yo F with upper GI bleed due to varices, and aspiration pneumonia, here with continued anemia and hypoxic respiratory failure. - Patient Problems (1) Acute blood loss anemia Current Visit: Yes Status: Acute Priority: High Code(s): D62 - ACUTE POSTHEMORRHAGIC ANEMIA SNOMED Code(s): 747646461 Comment: -H/H stable this morning, will stop octreotide, continue protonix. -No need for EGD/further investigations, this is a management issue, not diagnostic (2) Aspiration pneumonia Current Visit: Yes Status: Acute Priority: Medium Code(s): J69.0 - PNEUMONITIS DUE TO INHALATION OF FOOD AND VOMIT SNOMED Code(s): 211354674 Comment: -know to have chronic aspiration, may have anaerobes, gram (+) organisms -responding to IV zosyn and azithromycin -oxygenating better, slow improvement (3) Acute respiratory failure with hypoxia Current Visit: No Status: Acute Priority: High Code(s): J96.01 - ACUTE RESPIRATORY FAILURE WITH HYPOXIA SNOMED Code(s): 33114542 Comment: -has been weaned to salter canula from Vapotherm. -Will attempt to mobilize today (4) DNR (do not resuscitate) Current Visit: Yes Status: Chronic Priority: Medium Comment: Hospice consult appreciated, will discuss with family when available (5) Thrombocytopenia Current Visit: No Status: Acute Code(s): D69.6 - THROMBOCYTOPENIA, UNSPECIFIED SNOMED Code(s): 348138667 Comment: - PLT improved today, may be due to consumption w/ acute illness, and recent RBC transfusions - octreotide can cause low platelets, will stop and observe (6) Hypernatremia Current Visit: No Status: Acute Priority: Medium Code(s): E87.0 - HYPEROSMOLALITY AND HYPERNATREMIA SNOMED Code(s): 02746141 Comment: - considered starting 1/2NS, but patient has been volume overloaded , will push PO fluids and recheck Na in afternoon. - potassium remains low, will supplement orally at higher dose, recheck Mg Status and Disposition: Continued ICU monitoring due to continued hypoxic respiratory failure.
--- NOTE | 2016-11-30 10:01 | RAD ---
Indication: Desaturation. Single frontal view of the chest performed at 0930 hours was reviewed. Comparison is made with previous exam dated November 28, 2016. No mediastinal shift is noted. Increasing interstitial edema is noted especially in the left lung field consistent with worsening interstitial edema. Progressive left lower lobe pneumonia is noted. IMPRESSION: INCREASING INTERSTITIAL AND ALVEOLAR INFILTRATES.
[2016-11-30] MEDS: Sertraline* 100 MG TAB PO SCH (10:19)
[2016-11-30] MEDS: Potassium Chloride LIQUID* 20 MEQ PACKET PO SCH ×3 (10:20→23:38)
[2016-11-30] MEDS: Pantoprazole IV* 80 MG in NS 0.9% 250 ML* 250 ML IVPB SCH ×2 (10:20→20:26)
[2016-11-30] MEDS: Metoprolol Tartrate TAB* 25 MG PO SCH (10:20)
[2016-11-30 10:32] LABS: Magnesium 2.3 mg/dL (1.9-2.7)
[2016-11-30] MEDS ORDERED: Furosemide IV* 10 MG/ML 2 ML VIAL (20 MG) IV ONE (11:00)
[2016-11-30] MEDS: LORazepam TAB(*) 1 MG PO PRN ×2 (11:42→23:38)
[2016-11-30] MEDS ORDERED: Amiodarone 150 MG IVPREMIX* 150 MG/100 ML BAG IV ONE (14:35)
[2016-11-30 14:43] LABS: Calcium 7.2 mg/dL (8.6-10.3); EGFR African American 94.7 (>60); EGFR Non-African American 73.6 (>60); Potassium 2.9 mmol/L (3.5-5.0)
--- NOTE | 2016-11-30 14:44 | PN ---
Progress Note - Progress Note Date of Service: 11/30/16 Note: Event Note: Called to see patient. She has had tachycardia up to 120-140 bpm. BP down to 87/ 45 range. O2 sat down to low 80s. EKG shows a-fib with LBBB, baseline EKG is LBBB. Has rapid ventricular response. Patient looks distressed-moderate resp, not talking Rales lower 1/2 lungs bilat Heart; tachy, irregular A/P: A-fib with RVR, not tolerating. Will start amiodarone bolus and drip.
[2016-11-30] MEDS ORDERED: Amiodarone 360 MG IVPREMIX* 360 MG/200 ML BAG IV ONE (15:00)
[2016-11-30] MEDS: KCL 20 MEQ/100 ML IVPREMIX* 20 MEQ/100 ML BAG IV SCH ×2 (15:49→18:00)
[2016-11-30] MEDS: Amiodarone 360 MG IVPREMIX* 360 MG/200 ML BAG IV SCH (20:20)
[2016-12-01] MEDS: Albuterol/Ipratropium NEB.SOL* Albuterol 2.5 MG/Ipratropium 0.5 MG 3 ML INH SCH ×5 (00:14→16:29)
[2016-12-01] MEDS: Pantoprazole IV* 80 MG in NS 0.9% 250 ML* 250 ML IVPB SCH (02:10)
[2016-12-01 05:44] LABS: Hematocrit 22 % (35-47); Hemoglobin 7.3 g/dl (12.0-16.0); Mean Corpuscular HGB Conc 33 g/dl (31-36); Mean Corpuscular Hemoglobin 29 pg (27-31); Mean Corpuscular Volume 86 fL (80-97); Mean Platelet Volume 10 um3 (7.4-10.4); Red Blood Count 2.57 10^6/ul (4.0-5.4); Red Cell Distribution Width 19 % (10.5-15); White Blood Count 6.9 10^3/ul (3.5-10.8)
[2016-12-01 05:57] LABS: Comments Flag Yes
[2016-12-01 06:09] LABS: BUN/Creatinine Ratio 20.8 (8-20); Calcium 7.5 mg/dL (8.6-10.3); EGFR African American 91.8 (>60); EGFR Non-African American 71.4 (>60); Potassium 3.8 mmol/L (3.5-5.0)
[2016-12-01] MEDS: Levothyroxine TAB* 150 MCG TAB PO SCH (06:20)
[2016-12-01] MEDS: ZOSYN 3.375 GM Q8H per EXTENDED INFUSION IVPB SCH ×2 (06:20)
[2016-12-01] MEDS: Mometasone/Formoter 200/5 MDI INH SCH ×2 (07:25→20:00)
[2016-12-01] MEDS: Amiodarone 360 MG IVPREMIX* 360 MG/200 ML BAG IV SCH (07:35)
--- NOTE | 2016-12-01 07:51 | PN ---
Subjective Date of Service: 12/01/16 Interval History: HOSPITALIST PROGRESS NOTE Patient seen and examined at bedside. She's more dyspneic this AM. Confused, speaking nonsense, hallucinating trying to reach things there are not there. As per RN, no further episodes of melena. Back on Vapotherm 40 liters/100%, unable to wean down. Family History: Unchanged from Admission Social History: Unchanged from Admission Past Medical History: Unchanged from Admission Objective Active Medications: Acetaminophen (Tylenol Supp*) 650 mg [place] Q4H PRN PRN Reason: FEVER/PAIN Albuterol (Ventolin 2.5 Mg/3 Ml Neb.Zoila*) 2.5 mg INH Q2H PRN PRN Reason: SOB/WHEEZING Last Admin: 11/27/16 05:30 Dose: 2.5 mg Albuterol/Ipratropium (Duoneb (Albuterol 2.5 Mg/Ipratropium 0.5 Mg)) 1 neb INH RT.[id number] AWAKE [facility] Last Admin: 12/01/16 07:24 Dose: 1 neb Piperacillin Sod/Tazobactam (Sod 3.375 gm/ Sodium Chloride) 100 mls @ 25 mls/ hr IVPB Q8H [facility] Last Admin: 12/01/16 06:20 Dose: 25 mls/hr Pantoprazole Sodium 80 mg/ (Sodium Chloride) 250 mls @ 25 mls/hr IVPB Q10H [facility] Last Admin: 12/01/16 02:10 Dose: 25 mls/hr Amiodarone HCl (Nexterone 360 Mg/200 Ml Ivpremix*) 360 mg in 200 mls @ 16.666 mls/hr IV .PER PROTOCOL [facility] PRN Reason: 0.5 MG/MIN Last Admin: 12/01/16 07:35 Dose: 16.666 mls/hr Levothyroxine Sodium (Synthroid Tab*) 150 mcg PO 0600 [facility] Last Admin: 12/01/16 06:20 Dose: 150 mcg Lorazepam (Ativan Tab(*)) 1 mg PO BID PRN PRN Reason: ANXIETY Last Admin: 11/30/16 23:38 Dose: 1 mg Mometasone Furoate/Formoterol Fumar (Dulera 200/5 Mdi*) 2 puff INH BID [facility] Last Admin: 09/25/17 07:25 Dose: 2 puff Morphine Sulfate (Morphine Inj (Syringe)*) 1 mg IV Q6H PRN PRN Reason: Pain / Tachypnea Last Admin: 11/30/16 07:56 Dose: 1 mg Morphine Sulfate (Morphine Oral Concentrate*) 2.5 mg SL Q1HR PRN PRN Reason: DYSPNEA Last Admin: 11/28/16 17:55 Dose: 2.5 mg Ondansetron HCl (Zofran Inj*) 4 mg IV Q6H PRN PRN Reason: NAUSEA Pharmacy Consult (Zosyn Per Pharmacy*) 1 note FOLLOW UP .ZOSYN PER PHARMACY [facility] Potassium Chloride (Klor-Con Liquid*) 20 meq PO Q8H [facility] Last Admin: 11/30/16 23:38 Dose: 20 meq Quetiapine Fumarate (Seroquel Tab*) 50 mg PO BEDTIME PRN PRN Reason: ANXIETY Sertraline HCl (Zoloft*) 200 mg PO DAILY [facility] Last Admin: 11/30/16 10:19 Dose: 200 mg Vital Signs 12/01/16 12/01/16 12/01/16 04:00 04:01 04:15 Temperature 97.9 F Pulse Rate 97 100 98 Respiratory 30 30 28 Rate Blood Pressure 100/68 100/56 (mmHg) O2 Sat by Pulse 97 97 98 Oximetry 12/01/16 12/01/16 12/01/16 07:01 07:15 07:28 Temperature Pulse Rate 100 101 99 Respiratory 34 32 18 Rate Blood Pressure 106/69 (mmHg) O2 Sat by Pulse 92 76 95 Oximetry Oxygen Devices in Use Now: High Flow Nasal Cannula - Vapotherm 40 liters FiO2 100% Appearance: Elderly frail lady lying in bed in moderate respiratory distress. Eyes: No Scleral Icterus Ears/Nose/Mouth/Throat: Mucous Membranes Moist Neck: Trachea Midline Respiratory: Symmetrical Chest Expansion and Respiratory Effort, - - BS+ bilaterally with bilateral wheezes and bibasilar crackles Cardiovascular: - - Normal S1 and S2, irregularly irregular, tachycardic Abdominal: NL Sounds; No Tenderness; No Distention Extremities: No Edema Neurological: - - AAOx1 (self only), confused, ZENG Lines/Tubes/Other Access: Clean, Dry and Intact Peripheral IV Nutrition: Taking PO's Result Diagrams: 12/01/16 05:35 12/01/16 05:35 Assess/Plan/Problems-Billing Assessment: Mrs. Hoang is an 86yo F with upper GI bleed due to varices, and aspiration pneumonia, here with continued anemia and hypoxic respiratory failure. - Patient Problems (1) Acute hypoxemic respiratory failure Comment: - Worse again today, likely a combination of aspiration and fluid overload, although she appears to be intravascularly dry with hypernatremia. - Continue Vapotherm. - Increase Morphine for comfort. (2) Fluid overload Comment: - Received furosemide yesterday with no improvement of her respiratory status and worsening hypernatremia. (3) Acute blood loss anemia Comment: - H/H stable this morning, no further episodes of melena. - Not a candidate for EGD due to her clinical condition. - Octreotide drip was discontinued, will d/c Protonix drip and continue Protonix BID. (4) GI bleed Comment: - Continue Pantoprazole IV BID. (5) Aspiration pneumonia Comment: - Known to have chronic aspiration and dysphagia. - Completed 7 days of antibiotics, but at very high risk for aspiration again. (6) Transaminitis Comment: - Patient has known h/o cirrhosis with portal HTN and esophageal varices. - RUQ US showed cirrhosis and cholelithiasis, but no obstruction. - Suspect secondary to infection - trended down. (7) DVT prophylaxis Comment: - Pharmacological prophylaxis contraindicated in the setting of recent GI bleed. - SCDs. (8) DNR (do not resuscitate) (9) End of life care Comment: - Patient's condition continues to decline, more uncomfortable today. - From my conversation with Palliative care, daughter wanted to take patient home with Hospice, but I don't think she'll get stable enough for discharge and will probably require inpatient Hospice. - Hospice follow up requested. - Daughter called - in agreement with plan for inpatient Hospice. Status and Disposition: Inpatient for management of respiratory failure requiring >48h for stabilization.
[2016-12-01] MEDS: Sertraline* 100 MG TAB PO SCH (08:14)
[2016-12-01] MEDS: Potassium Chloride LIQUID* 20 MEQ PACKET PO SCH (08:14)
[2016-12-01] MEDS: Morphine INJ* 4 MG/ML 1 ML CARPUJECT IV PRN (08:51)
[2016-12-01] MEDS ORDERED: Atropine 1% (ORAL/SL)* 15 ML BTL SL PRN (10:09)
[2016-12-01] MEDS ORDERED: LORazepam TAB(*) 1 MG PO PRN ×2 (10:09→12:58)
[2016-12-01] MEDS ORDERED: Morphine ORAL CONCENTRATE* 5 MG/0.25 ML ORAL.SYRIN SL PRN ×2 (10:09→12:58)
[2016-12-01] MEDS ORDERED: Morphine INJ* 4 MG/ML 1 ML CARPUJECT IV PRN (10:10)
[2016-12-01] MEDS ORDERED: Morphine ORAL CONCENTRATE* 5 MG/0.25 ML ORAL.SYRIN SL ONE (10:15)
--- NOTE | 2016-12-01 13:01 | PN ---
Progress Note - Progress Note Date of Service: 12/01/16 Note: Palliative care follow up note: Patient was restarted back on vapotherm two days ago. Minimally arousable. Limited PO intake - small bites when awake. Now sleeping with increase work of breathing. Daughter/HCP at the bedside. Discussed vapotherm likely prolonging the dying process. Discussed weaning the vapotherm and keeping her comfortable and increasing her morphine for her work of breathing. Daughter agrees. Would like her son to come in and see her before vapotherm is weaned off. Increase morphine to 10 mg q1hr, increase ativan to q1hr.
[2016-12-01] MEDS ORDERED: Morphine INJ* 4 MG/ML 1 ML CARPUJECT IV ONE (15:17)
[2016-12-01] MEDS ORDERED: Morphine INJ* 10 MG/ML 1 ML CARPUJECT IV PRN (15:18)
[2016-12-01] MEDS ORDERED: LORazepam INJ* 2 MG/ML 1 ML VIAL IV PUSH PRN (15:18)
[2016-12-01] MEDS ORDERED: Morphine INJ* 10 MG/ML 1 ML CARPUJECT IV ONE (15:40)
[2016-12-01] MEDS ORDERED: LORazepam INJ* 2 MG/ML 1 ML VIAL IVPB ONE (15:41)
[2016-12-01] MEDS ORDERED: Morphine INJ* 10 MG/ML 1 ML CARPUJECT ONE (15:43)
[2016-12-01] MEDS ORDERED: LORazepam INJ* 2 MG/ML 1 ML VIAL ONE (15:44)
[2016-12-01] MEDS ORDERED: Morphine PCA ADULT* 5 MG/ML 30 ML PCA SCH ×3 (16:00→17:00)
[2016-12-01 16:28] VITALS: BP 105/49
[2016-12-01] MEDS ORDERED: Pantoprazole IV* 40 MG IV SCH (21:00)
== END 2016-12-02 01:12 | disposition expired | DRG 177 ==
LOC: ED 08:29 → MED 10:44 → OBSVTOIN 11-25 13:23 → ICU 11-27 09:30
PROVIDERS: ADMIT Internal Medicine; ATTEND Pediatrics
PROC: 30233N1 Transfusion of Nonautologous Red Blood Cells into Peripheral Vein, Percutaneous Approach (ICD-10-PCS; principal; 2016-11-27)
PROC: 3E0234Z Introduction of Serum, Toxoid and Vaccine into Muscle, Percutaneous Approach (ICD-10-PCS; 2016-11-28)
DX: J69.0 Pneumonitis due to inhalation of food and vomit (principal); J96.21 Acute and chronic respiratory failure with hypoxia; I85.11 Secondary esophageal varices with bleeding; E87.0 Hyperosmolality and hypernatremia; E46 Unspecified protein-calorie malnutrition; K76.6 Portal hypertension; D62 Acute posthemorrhagic anemia; F03.90 Unspecified dementia, unspecified severity, without behavioral disturbance, psychotic disturbance, mood disturbance, and anxiety; I48.0 Paroxysmal atrial fibrillation; F05 Delirium due to known physiological condition; D69.6 Thrombocytopenia, unspecified; I50.9 Heart failure, unspecified; I11.0 Hypertensive heart disease with heart failure; Z68.1 Body mass index [BMI] 19.9 or less, adult; E87.70 Fluid overload, unspecified; E03.9 Hypothyroidism, unspecified; I25.10 Atherosclerotic heart disease of native coronary artery without angina pectoris; I35.0 Nonrheumatic aortic (valve) stenosis; J44.9 Chronic obstructive pulmonary disease, unspecified; K21.9 Gastro-esophageal reflux disease without esophagitis; E78.5 Hyperlipidemia, unspecified; K57.90 Diverticulosis of intestine, part unspecified, without perforation or abscess without bleeding; M10.9 Gout, unspecified; M19.90 Unspecified osteoarthritis, unspecified site; Z96.653 Presence of artificial knee joint, bilateral; H91.90 Unspecified hearing loss, unspecified ear; F43.10 Post-traumatic stress disorder, unspecified; F41.0 Panic disorder [episodic paroxysmal anxiety]; R13.10 Dysphagia, unspecified; F32.9 Major depressive disorder, single episode, unspecified; K44.9 Diaphragmatic hernia without obstruction or gangrene; I44.7 Left bundle-branch block, unspecified; Z66 Do not resuscitate; Z51.5 Encounter for palliative care; Z99.81 Dependence on supplemental oxygen; Z88.6 Allergy status to analgesic agent; Z88.7 Allergy status to serum and vaccine; Z98.42 Cataract extraction status, left eye; Z98.41 Cataract extraction status, right eye; Z87.891 Personal history of nicotine dependence; Z99.3 Dependence on wheelchair; Z23 Encounter for immunization
CPT/HCPCS: 36415; 71010; 71020; 76705; 80048; 80053; 80076; 83605; 83735; 84484; 85014; 85018; 85025; 85060; 85610; 85730; 86140; 86850; 86900; 86901; 86922; 87040; 87502; 87641; 90686; 93005; 94640; 94760; A9270-GY; G0378; G8996-GN-CL; G8997-GN-CL; G8998-GN-CL; J0282; J0456; J1940; J2060; J2270; J2354; J2543; J2930; J3475; J3480; J7512; P9040